=== PATIENT | male | born 1935 | race Caucasian/White ===

== ENCOUNTER → 2019-06-11 06:45 | Outpatient (CLI) | payer MEDICARE, SELFPAY ==
[2019-05-17 10:52] VITALS: BMI 31.5
--- NOTE | 2019-06-11 06:46 | ECHOCS_ITS ---
Reason For Study: CAD Procedure This was a 2D Doppler, Color Flow transthoracic echocardiogram. The study was technically difficult. Contrast injection was performed. Exam performed in department. Left Ventricle Normal LV size. Left ventricular systolic function is normal. The estimated ejection fraction is 65 %. No evidence for diastolic dysfunction. No regional wall motion abnormalities noted. Right Ventricle Normal RV size. ICD or pacer leads identified within the right ventricle. Normal systolic function. Atria Borderline to mildly enlarged left atrium. Normal right atrium. ICD or pacer leads identified within the right atrium. No doppler evidence for ASD. Mitral Valve There is mild to moderate mitral annular calcification. Extension of the mitral annular calcification onto the base of the posterior mitral valve leaflet. Mild diffuse mitral valve thickening. Mild (1+) mitral valve insufficiency. Tricuspid Valve Normal tricuspid valve. Mild tricuspid valve insufficiency. Right ventricular systolic pressure estimated to be 53 mmHg. Aortic Valve Trisinus/trileaflet aortic valve. Mild diffuse aortic valve thickening. Mild diffuse aortic valve calcification. Mild aortic stenosis. Pulmonic Valve The pulmonic valve is not well visualized. Trivial pulmonic valve insufficiency. Great Vessels Normal sized aortic root. Pericardium/Pleural No pericardial effusion. Medication Diluted definity 3.0ml given slow IV push to enhance endocardial definition. MMode/2D Measurements & Calculations LVIDd: 4.8 cm IVSd: 0.98 cm LVOT diam: 2.0 cm LVIDs: 2.8 cm LVPWd: 1.0 cm RVDd: 3.3 cm FS: 42.0 % LVOT area: 3.1 cm2 Ao root diam: 3.4 cm LAV(MOD-bp): 43.8 ml LVAd ap4: 34.0 cm2 LAV(MOD-bp) Indexed: 20.6 ml/m2 EDV(MOD-sp4): 111.1 ml LAV(MOD-sp2): 35.2 ml EDV(sp4-el): 113.1 ml LAV(MOD-sp4): 42.8 ml LVAs ap4: 17.1 cm2 ESV(MOD-sp4): 34.3 ml ESV(sp4-el): 33.7 ml EF(MOD-sp4): 69.1 % EF(sp4-el): 70.2 % SV(MOD-sp4): 76.8 ml SV(sp4-el): 79.4 ml Aortic Valve Planimetry: 1.7 cm2 LA A4 area: 17.6 cm2 LA dimension(2D): 4.7 cm RA A4 area: 13.9 cm2 Time Measurements MV dec time: 0.23 sec Doppler Measurements & Calculations MV E max kenn: 85.5 cm/sec Lat Peak E' Kenn: 9.7 cm/sec Med Peak E' Kenn: 7.5 cm/sec MV A max kenn: 102.5 cm/sec E/E' lat: 8.8 E/E' med: 11.4 MV E/A: 0.83 Ao V2 max: 205.2 cm/sec LV V1 max: 104.6 cm/sec SV(LVOT): 69.3 ml Ao max P.8 mmHg LV V1 max P.4 mmHg Ao V2 mean: 144.3 cm/sec LV V1 mean P.5 mmHg Ao mean P.2 mmHg LV V1 mean: 76.1 cm/sec Ao V2 VTI: 42.7 cm LV V1 VTI: 22.7 cm ANGEL(I,D): 1.6 cm2 ANGEL(V,D): 1.6 cm2 PA V2 max: 117.9 cm/sec TR max kenn: 350.5 cm/sec TR max P.6 mmHg Interpretation Summary The study was technically difficult. Contrast injection was performed. Left ventricular systolic function is normal. The estimated ejection fraction is 65 %. Borderline to mildly enlarged left atrium. There is mild to moderate mitral annular calcification. Extension of the mitral annular calcification onto the base of the posterior mitral valve leaflet. Mild diffuse mitral valve thickening. Mild (1+) mitral valve insufficiency. Mild tricuspid valve insufficiency. Mild aortic stenosis. Trivial pulmonic valve insufficiency. Right ventricular systolic pressure estimated to be 53 mmHg. No evidence for diastolic dysfunction. ICD or pacer leads identified within the right atrium ICD or pacer leads identified within the right ventricle. Ordering Physician: Troy Rodriguez Referring Physician: ANALY MILLER Performed By: Jyoti Matthew, LIZETTE, RVT
--- NOTE | 2019-06-11 12:26 | STRESSREP ---
Stress Test Report Date: 06-11-2019 Procedure: Pharmacologic stress nuclear imaging study Indications: CAD; PCI; permanent pacemaker Consent: Per the patient Procedure: The patient underwent pharmacologic (Regadenoson) evaluation with a peak heart rate of 97 beats per minute (70 %predicted maximal heart rate) and a peak blood pressure of 148/70 mmHg. The baseline ECG demonstrated normal sinus rhythm; poor R wave progression. The peak pharmacologic ECG demonstrated no obvious ECG changes. There was a rare PVC during recovery. There was no complaint of chest discomfort during pharmacologic infusion or recovery. The examination was discontinued secondary to completion of protocol. Impression: 1. Pharmacologic (Regadenoson) evaluation 2. Peak pharmacologic ECG with no obvious ECG changes. 3. There was a rare PVC during recovery. 4. Nuclear images pending Myocardial perfusion imaging study: Technique: The patient was injected with 14.5 millicuries of technetium 99m Cardiolite and subsequently rest SPECT Cardiolite nuclear imaging was obtained in the horizontal long, vertical long, and short axis views. The patient underwent pharmacologic (Regadenoson) evaluation with a peak heart rate of 97 beats per minute (70 % percent predicted maximal heart rate) and a peak blood pressure of 148/70 mmHg. The patient was injected with 45.0 millicuries of technetium 99m Cardiolite and subsequently stress SPECT Cardiolite nuclear imaging was obtained in the horizontal long, vertical long, and short axis views. A gated Cardiolite study at peak stress was obtained. Interpretation: Rest and stress SPECT Cardiolite nuclear imaging status post realignment, normalization, and attenuation correction demonstrate relative uniform tracer uptake and myocardial perfusion appearing within normal limits. There is end systolic thickening and brightening. The gated Cardiolite study demonstrates myocardial thickening and inward wall motion. The reported LVEF is 79 %. Impression: 1. Rest and stress SPECT Cardiolite nuclear imaging demonstrate relative uniform tracer uptake and myocardial perfusion appearing within normal limits. 2. The gated Cardiolite study reports an LVEF of 79 %. This note was generated with [employer] software. It may contain incorrect words, spelling, and punctuation that were not noted in checking the note before signing.
== END ==
PROVIDERS: Referring Provider Internal Medicine Cardiovascular Disease; Visit Provider Internal Medicine Cardiovascular Disease
DX: I25.10 Atherosclerotic heart disease of native coronary artery without angina pectoris (principal)
CPT/HCPCS: 78452; 93017; 93306; A9500; Q9957; A4216; C8929; J2785

== ENCOUNTER 2020-04-11 09:08 | Day surgery (SDC) | payer MEDICARE, SELFPAY ==
[2020-04-06 15:06] VITALS: BMI 33.3
--- NOTE | 2020-04-06 15:58 | RAD_ITS ---
HISTORY: DYSPNEA AND CHEST PRESSURE ON EXERTION ADDITIONAL HISTORY: None provided. COMPARISON: 06/07/2017 EXAMINATION/TECHNIQUE: XR Chest 2 Views Number of images including paperwork: 2 FINDINGS: LUNGS AND PLEURA: Hyperinflation. Mild linear basilar opacities appear similar, likely scarring. No consolidation, mass or pleural effusion. CARDIAC SILHOUETTE: Unremarkable. MEDIASTINUM AND ZOYA: Aortic calcification. UPPER ABDOMEN: Unremarkable. SKELETON AND SOFT TISSUES: No acute findings. Degenerative changes. OTHER DEVICES AND HARDWARE: Pacemaker with left-sided generator. RAD/Chest PA and Lateral IMPRESSION: No acute cardiopulmonary abnormality. Hyperinflation compatible with COPD. at [id number] Reported and signed by: Angelina Blake MD Electronically Signed: Angelina Blake MD at 7:57 EST Tel , Service support ,
[2020-04-06 17:21] LABS: Absolute Lymphocyte Count 1.48 X10^3/uL (0.83-4.51); Absolute Neutrophil Count 4.7 X10^3/uL (2.0-7.7); Basophil# 0.05 X10^3/uL; Basophil% 0.7 % (0-1); Eosinophil# 0.22 X10^3/uL; Eosinophils% 3.1 % (0-5); Hematocrit 48.1 % (40-54); Hemoglobin 14.8 g/dL (13.0-16.5); Lymphocyte # 1.48 X10^3/ul (4.0); Mean Corp Hgb Conc 30.8 g/dL (32-36); Mean Corpuscular Hgb 29.2 pg (27.0-32.0); Mean Corpuscular Volume 94.9 fL (80-94); Mean Platelet Vol. 10.4 fl (6.2-12.0); Monocyte% 8.5 % (0-10); NRBC Flagged by Analyzer 0 % (0-5); Neutrophil # 4.66 X10^3/uL (2.7-7.7); Neutrophil % 66.3 % (47-70); Platelet Count 258 K/mm3 (150-450); RBC Distribution Width CV 12.8 % (11.6-14.6); RBC Distribution Width SD 44.3 fl (35.1-43.9); Red Blood Count 5.07 M/mm3 (4.6-6.2)
[2020-04-06 17:30] LABS: International Normalized Ratio 1.1; Prothrombin Time (Protime)PT. 13.8 SECONDS (11.7-14.9)
[2020-04-06 17:34] LABS: Anion Gap 6 (5-15); BNP,B-Type NATRIURETIC PEPTIDE 153.3 pg/mL (0-100); BUN 22 mg/dL (7-18); BUN/Creat Ratio 25.1 RATIO (10-20); Calcium,Total 9.3 mg/dL (8.5-10.1); Chloride 106 mmol/L (98-107); Creatinine, Serum 0.88 mg/dL (0.70-1.30); EST Glomerular Filtration Rate 88 mL/min (>60); Est Glom Filt Rate - Afr Amer 107 mL/min (>60); Glucose 129 mg/dL (74-106); Potassium 4.1 mmol/L (3.5-5.1); Sodium Level 139 mmol/L (136-145)
[2020-04-10 11:32] VITALS: BMI 33.3
--- NOTE | 2020-04-11 07:37 | HP_ITS ---
HPI HPI History of Present Illness Surgical H&P: Yes Details: ECTOR ZELAYA, is a 85 M who presents to the office today for for concerns over stable angina from his primary care doctor. Patient has history of coronary artery disease status post bare-metal stenting to RCA in June 2006, cardiac dysrhythmia with permanent pacemaker placement and subsequent generator change in June 2015, hypertension, and hyperlipidemia. pt sts that over the last few months he has had a decrease in exercise tolerance when he walks. He notes that with significant exertion, such as walking across a baseball field, he did have some chest discomfort that he rates as a 3/10. He was able to recover without issues. He, however, was able to walk from the car to the office without problems. He feels that this is similar to what he had prior to his PPM placement. He does not have any palpitations that he is aware of. He does not have any lightheadedness/dizziness. He does not have any edema. Intake Vital Signs 04/06/20 Height 5 ft 8 in 04/06/20 Weight: 219 lb 04/06/20 BMI 33.3 04/06/20 BP 156/75 H 04/06/20 Blood Pressure Location Rt brachial 04/06/20 Position Sitting 04/06/20 Respiration 22 H 04/06/20 Pulse 66 04/06/20 Pulse Source Monitor 04/06/20 Pulse Oximetry (%) 90 Intake Visit Reasons: CP Gang Leader Required: No Is patient in pain?: No Allergies beta blockers Adverse Reaction (Uncoded 11/15/19 10:18) confusion Medications Aspirin [Aspirin, Baby] 81 mg PO DAILY@0800 06/23/15 [History Confirmed 11/15/19] Cholecalciferol (VIT D3) [Vitamin D] 2,000 unit PO DAILY 06/23/15 [History Confirmed 04/06/20] Timolol 0.5% [Timoptic] 1 drp EACH EYE DAILY 06/23/15 [History Confirmed 04/06/20] glipizide 5 mg-metformin 500 mg tablet 2 tab PO BID tab 05/30/17 [History Confirmed 04/06/20] balsalazide 750 mg capsule 4,500 mg PO QDAY cap 05/25/18 [History Confirmed 04/06/20] clopidogrel 75 mg tablet 75 mg PO DAILY #90 tab 03/24/19 [Rx Confirmed 04/06/20] liraglutide 0.6 mg/0.1 mL (18 mg/3 mL) subcutaneous pen injector 1.2 mg SC DAILY ml 05/17/19 [History Confirmed 04/06/20] atorvastatin 20 mg tablet 20 mg PO .COMPLEX #36 tab 07/21/19 [Rx Confirmed 04/06/20] atenolol 50 mg tablet 50 mg PO DAILY #90 tab 10/27/19 [Rx Confirmed 04/06/20] enalapril maleate 10 mg tablet 10 mg PO DAILY #90 tab 10/27/19 [Rx Confirmed 04/06/20] nitroglycerin 0.4 mg sublingual tablet 0.4 mg SUBLINGUAL Q5-15M PRN #25 tab 03/28/20 [Rx Confirmed 04/06/20] dapagliflozin 10 mg tablet 10 mg PO DAILY 04/06/20 [History Confirmed 04/06/20] [facility] Medical History Type 2 diabetes mellitus (Chronic) Mixed hyperlipidemia (Chronic) Essential hypertension (Chronic) Atherosclerotic heart disease of [place] coronary artery without angina pectoris (Chronic) Atrioventricular dissociation (Chronic) Paroxysmal supraventricular tachycardia (Chronic) Bradycardia, sinus (Chronic) Cardiac pacemaker in situ (Chronic) History of percutaneous transluminal coronary angioplasty (Chronic) Diabetes mellitus (Inactive) HLD (hyperlipidemia) (Inactive) HTN (hypertension) (Inactive) Surgical History Postsurgical percutaneous transluminal coronary angioplasty (PTCA) status (Chronic ~06/2006) pacemaker implant (Chronic ~2006) Family History Father CAD (coronary artery disease) Myocardial infarction, Onset Age: 75 Mother Cancer Sister Hypertension Social History (Updated 04/07/20 @ 15:38 by Violeta MATT, PA) Smoking Status: Former smoker how long ago did patient quit smokin alcohol intake: never diet: low salt caffeine: Yes ROS Const Const: Negative for fatigue, weakness, fever(s) or headache(s) Eyes Eyes: Negative for blind spots, loss of peripheral vision or transient loss of vision ENT ENT: Negative for headache(s), dizziness, tinnitus or Nosebleed/epistaxis Cardio Chest Pain: Yes Palpitations: No Edema: None Muscle aches with walking: None Resp Respiratory: Positive for SOB with activity; negative for SOB at rest, SOB orthopnea\SOB lying down or Cough GI GI: Negative nausea, vomiting, heartburn or vomiting blood/hematemesis : Negative for hematuria Musc Musc: Negative for muscle aches/ myalgia Neuro Neuro: Negative for dizziness, lightheadedness, near syncope, syncope, orthostatic symptoms, headache(s) or weakness Victor Manuel Hematologic/Lymphatic: Negative for easy bleeding Endo Endo: Negative for fatigue Cardiology Exam Const Appearance: cooperative, healthy appearing, comfortable and no acute distress Orientation: alert, awake and oriented x3 Head Head: normal to inspection Mouth: oral mucosae normal Neck Neck: normal visual inspection and no JVD Carotids: normal carotid upstroke Chest Chest inspection: normal inspection of the chest and normal respiratory effort Auscultation: Bilateral: Clear to Auscultation Cardio Rate: regular rate Rhythm: regular rhythm Heart sounds: S1 normal and S2 normal GI GI: normal to inspection Neuro General: alert, awake, oriented x3 and CN's II-XI intact bilaterally Skin Skin: no rashes or lesions noted Extremities Pulses: Normal: Right Posterior Tibial Pulse, Left Posterior Tibial Pulse, Right Radial Pulse, Left Radial Pulse Lower Extremity Edema: None: Bilateral Psych Psychological: normal affect Assessment & Plan 1. 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 With his recent stress test being negative and his continued chest discomfort with exertion that is worsened would like to evaluate for underlying ischemia. He is agreeable to proceed with a diagnostic heart catheterization. Patient Instructions Nothing to eat or drink after midnight Your cath is scheduled for 1030 am on 04/11 with an arrival time of 0900 In the morning take your ASA, atenolol, plavix, enalapril you need a transport truck driver if you have a stent placed you will spend night Orders Orders: 12 Lead EKG performed by [facility] 04/06/20 Prothrombin Time w/INR 04/06/20 2. Essential hypertension I10 Plan Blood pressure is well controlled on current medications, we do not recommend any changes at this time. 3. Mixed hyperlipidemia E78.2 Plan Managed by his primary care doctor. He will continue with his current dose of statin therapy. 4. Cardiac pacemaker in situ Z95.0 Plan Pacemaker is functioning appropriately. We will continue to monitor at routine scheduled pacemaker interrogations. 5. MARTIN (dyspnea on exertion) R06.00 Plan With shortness of breath with exertion and chest discomfort will obtain labs, chest x-ray and will also proceed with his diagnostic heart catheterization. Orders Orders: Basic Metabolic Profile (BMP) 04/06/20 CBC W/Diff, Automated 04/06/20 Chest PA and Lateral 04/06/20 BNP,B-Type NATRIURETIC PEPTIDE 04/06/20 6. Antiplatelet or antithrombotic long-term use Z79.02 Plan Detail Follow Up 04/06/20 (keep as is) Coding Level of Care Code Off vis,est,level 4 Diagnoses Coronary artery disease with angina pectoris I25.119 Essential hypertension I10 Mixed hyperlipidemia E78.2 Cardiac pacemaker in situ Z95.0 MARTIN (dyspnea on exertion) R06.00 Antiplatelet or antithrombotic long-term use Z79.02 Coding Level of Care Code Off vis,est,level 4 Diagnoses Coronary artery disease with angina pectoris I25.119 Essential hypertension I10 Mixed hyperlipidemia E78.2 Cardiac pacemaker in situ Z95.0 MARTIN (dyspnea on exertion) R06.00 Antiplatelet or antithrombotic long-term use Z79.02 Supplemental Info Supplemental Information Echocardiogram in 2020 demonstrated: Left ventricular systolic function is normal. The estimated ejection fraction is 65 %. Borderline to mildly enlarged left atrium. There is mild to moderate mitral annular calcification. Extension of the mitral annular calcification onto the base of the posterior mitral valve leaflet. Mild diffuse mitral valve thickening. Mild (1+) mitral valve insufficiency. Mild tricuspid valve insufficiency. Mild aortic stenosis. Trivial pulmonic valve insufficiency. Right ventricular systolic pressure estimated to be 53 mmHg. No evidence for diastolic dysfunction. ICD or pacer leads identified within the right atrium ICD or pacer leads identified within the right ventricle. Stress Test Report Date: 06-11-2019 Procedure: Pharmacologic stress nuclear imaging study Indications: CAD; PCI; permanent pacemaker Consent: Per the patient Procedure: The patient underwent pharmacologic (Regadenoson) evaluation with a peak heart rate of 97 beats per minute (70 %predicted maximal heart rate) and a peak blood pressure of 148/70 mmHg. The baseline ECG demonstrated normal sinus rhythm; poor R wave progression. The peak pharmacologic ECG demonstrated no obvious ECG changes. There was a rare PVC during recovery. There was no complaint of chest discomfort during pharmacologic infusion or recovery. The examination was discontinued secondary to completion of protocol. Impression: 1. Pharmacologic (Regadenoson) evaluation 2. Peak pharmacologic ECG with no obvious ECG changes. 3. There was a rare PVC during recovery. 4. Nuclear images pending Myocardial perfusion imaging study: Technique: The patient was injected with 14.5 millicuries of technetium 99m Cardiolite and subsequently rest SPECT Cardiolite nuclear imaging was obtained in the horizontal long, vertical long, and short axis views. The patient underwent pharmacologic (Regadenoson) evaluation with a peak heart rate of 97 beats per minute (70 % percent predicted maximal heart rate) and a peak blood pressure of 148/70 mmHg. The patient was injected with 45.0 millicuries of technetium 99m Cardiolite and subsequently stress SPECT Cardiolite nuclear imaging was obtained in the horizontal long, vertical long, and short axis views. A gated Cardiolite study at peak stress was obtained. Interpretation: Rest and stress SPECT Cardiolite nuclear imaging status post realignment, normalization, and attenuation correction demonstrate relative uniform tracer uptake and myocardial perfusion appearing within normal limits. There is end systolic thickening and brightening. The gated Cardiolite study demonstrates myocardial thickening and inward wall motion. The reported LVEF is 79 %. Impression: 1. Rest and stress SPECT Cardiolite nuclear imaging demonstrate relative uniform tracer uptake and myocardial perfusion appearing within normal limits. 2. The gated Cardiolite study reports an LVEF of 79 %. Diagnostics Electrocardiogram 04/06/20 Echocardiogram 06/11/19 Stress Test Nuclear Medicine 06/11/19 Stress Test 06/11/19 Pacemaker Check 02/16/20 Chest X-Ray 04/06/20 COVID (Procedure Consent) Procedure Criteria Procedure Criteria: Yes Elective The surgeon/proceduralist and patient have discussed in detail the risk of exposure to and/or potential harm posed by the COVID-19 virus with having a surgery/procedure at this time versus the risk of? delaying the surgery/procedure. It is not possible to know either the risk of delaying the surgery or procedure or chance of getting an infection with perfect accuracy, but a joint decision was made between the patient and the surgeon/proceduralist ?to proceed at this time with the scheduled surgery/procedure as indicated on the consent form. I have re-examined the patient. There are no clinical changes since date of exam.
--- NOTE | 2020-04-11 11:09 | CASEMGMT ---
Addendum entered by Lia De Luna 04/11/20 11:17: Call from seed laboratory assistant regarding transfer of outpt cath and if [facility] is in-network. Dr. Rodriguez updated that [facility] is in-network per website and rest of tertiary list completed, voice understanding. Mariama DODD CM Original Note: According to the [facility] website, the following are in-network tertiary facilities: [facility], [place], [facility], [place], [facility], [facility], [facility], [place], [facility], and . Mariama DODD CM
--- NOTE | 2020-04-11 11:44 | CL.D_ITS ---
Patient Name: ECTOR ZELAYA Study Date: 04/11/2020 Performing: Troy Rodriguez MD Ht: 68.11 inches 173 cm : 1935 Wt: 218.26 lbs 99 kg Age: 85 Gender: male BSA: 2.12 PROCEDURE(S) PERFORMED [id number]/LV CLINICAL PROFILE AND INDICATIONS Indications: Worsening Angina, Suspected CAD Heart Failure: None Stress/Imaging Date: 06/11/2019 Angina Classification Anginal Classification w/in 2 Weeks: CCS III CAD Presentations: Stable angina. CONCLUSIONS [place] Multivessel CAD RECOMMENDATIONS Risk factor modification Medical therapy Surgery consult for coronary revascularization DESCRIPTION OF PROCEDURE The patient arrived to the procedure lab. The risks and benefits of the procedure as well as a full d escription of our services here and current unavailability of surgical backup were fully explained to the patient and/or their significant other prior to the catheterization. The Timeout was completed, verifying the correct patient and procedure. The patient's procedural site was prepped and draped in the usual fashion. Local anesthetic was given subcutaneously to right radial region with Lidocaine 2% . Using a modified Seldinger technique, arterial access was obtained via the right radial artery, a 6 Fr sheath was inserted. Left Coronary Artery selective angiography was performed in multiple views u sing a 5 Fr. 4.0 [place] catheter. Left Coronary Artery selective angiography was performed in multiple views using a 5 Fr. JL3.5 catheter. Right Coronary Artery selective angiography was then performed i n multiple views using a 5 Fr. JR 4 catheter.The arterial sheath was pulled and a TR Band was applied for hemostasis CORONARY ANGIOGRAPHY DOMINANCE: Right Dominant LEFT HEART ASSESSMENT Left Ventricular Ejection Fraction: Not assessed LEFT MAIN: Mild calcification LEFT ANTERIOR DESCENDING ARTERY: PROX LAD: Moderate calcification, 50 - 75 % Stenosis MID LAD: Hazy: 75 % Stenosis, Mild luminal irregularities SEPTAL: Ostial: 50 % Stenosis CIRCUMFLEX ARTERY: PROX CIRC: Mild calcification, Mild luminal irregularities MID CIRC: 50 - 75 % Stenosis DISTAL CIRC: 75 % Stenosis OM 1: Proximal - 25 % Stenosis, Mid - Mild luminal irregularities RIGHT CORONARY ARTERY: Mild luminal irregularities PROX RCA: Mild calcification MID RCA: Previously placed stent is occluded, Mid to distal: filling from bridging collaterals: fills late with mid to distal 50 - 75 % Stenosis COLLATERAL FLOW: Collateral flow from Left to Right COMPLICATIONS No Complications PROCEDURE MEDICATIONS Fentanyl 50 mcg IV Versed 1 mg IV Oxygen: 2 L/min via nasal cannula Baby Aspirin (81mg) 1 Tabs PO @ 04/11/2020 09:32:51 Heparin diluted in 23cc Heparinized saline. Patient given 10cc IA of this solution. 04/11/2020 10:26 :59 Plavix 75 mg PO 04/11/2020 09:33:07 Verapamil 2.5mg, Ntg 100mcgs, 2000 units of Heparin diluted in 23cc Heparinized saline. Patient give n 10cc IA of this solution. 04/11/2020 10:26:59 SUMMARY OF HEMODYNAMIC DATA Time AIR REST ECG 09:31:04 AO 109/63 (83) SA 10:33:12 AO 125/65 (94) 10:41:35 Signed By Troy Rodriguez MD On 04/11/2020 11:43:45 Troy Rodriguez MD
--- NOTE | 2020-04-11 13:04 | PN.CARD_ITS ---
Subjectve: Patient is now status post diagnostic cardiac catheterization. He appears to be resting comfortably. Objective: Weight: 219 lb Body Mass Index (BMI) 33.3 General: Awake, Alert, Oriented x 3, Cooperative, No Acute Distress, Obese HEENT: Atraumatic, Normocephalic, PERRL, EOMI, Sclera Non Icteric Neck: Supple, Good ROM, No JVD Lungs: Clear to auscultation Cardiovascular: Regular Rhythm, Normal S1, Normal S2 Vascular: Normal Radial Pulses Abdomen: Bowel Sounds Present, Soft Extremities: No edema Neurological: No Focal Motor or Sensory Deficit Psych/Mental Status: Appropriate Rhythm: Sinus rhythm Cardiac Cath: CONCLUSIONS [place] Multivessel CAD RECOMMENDATIONS Risk factor modification Medical therapy Surgery consult for coronary revascularization DESCRIPTION OF PROCEDURE The patient arrived to the procedure lab. The risks and benefits of the procedure as well as a full description of our services here and current unavailability of surgical backup were fully explained to the patient and/or their significant other prior to the catheterization. The Timeout was completed, verifying the correct patient and procedure. The patient's procedural site was prepped and draped in the usual fashion. Local anesthetic was given subcutaneously to right radial region with Lidocaine 2%. Using a modified Seldinger technique, arterial access was obtained via the right radial artery, a 6Fr sheath was inserted. Left Coronary Artery selective angiography was performed in multiple views using a 5 Fr. 4.0 [place] catheter. Left Coronary Artery selective angiography was performed in multiple views using a 5 Fr. JL3.5 catheter. Right Coronary Artery selective angiography was then performed in multiple views using a 5 Fr. JR 4 catheter.The arterial sheath was pulled and a TR Band was applied for hemostasis CORONARY ANGIOGRAPHY DOMINANCE: Right Dominant LEFT HEART ASSESSMENT Left Ventricular Ejection Fraction: Not assessed LEFT MAIN: Mild calcification LEFT ANTERIOR DESCENDING ARTERY: PROX LAD: Moderate calcification, 50 - 75 % Stenosis MID LAD: Hazy: 75 % Stenosis, Mild luminal irregularities SEPTAL: Ostial: 50 % Stenosis CIRCUMFLEX ARTERY: PROX CIRC: Mild calcification, Mild luminal irregularities MID CIRC: 50 - 75 % Stenosis DISTAL CIRC: 75 % Stenosis OM 1: Proximal - 25 % Stenosis, Mid - Mild luminal irregularities RIGHT CORONARY ARTERY: Mild luminal irregularities PROX RCA: Mild calcification MID RCA: Previously placed stent is occluded, Mid to distal: filling from bridging collaterals: fills late with mid to distal 50 - 75 % Stenosis COLLATERAL FLOW: Collateral flow from Left to Right Medical Necessity - Tobacco Use Smoking Status: Former smoker Assessment/Plan 1. CAD status post PCI-remote The patient has undergone reevaluation with diagnostic cardiac catheterization. He was found to have progressive underlying CAD. His case was reviewed with interventional cardiology. The recommendation at this time was to consider the patient for CT surgery/CABG. If CT surgery declined the patient that he would need to be considered for a chronic total occlusion interventional cardiology consult for his RCA distribution. His case was discussed with Dr. Boubacar [facility] CT surgery. He agreed to except the patient in transfer for further evaluation and care when a bed was available. 2. Bradycardia/tachycardia The patient has had a history of both bradycardias as well as tachycardia/SVT. He has been treated medically. He has a permanent pacemaker in place. 3. Permanent pacemaker He appears to be doing well with his permanent pacemaker thus far. He can be reevaluated as deemed appropriate. 4. Hyperlipidemia He will continue lipid-lowering therapy. 5. Hypertension His blood pressure will be followed. He will continue medical therapy as deemed appropriate. 6. Diabetes mellitus He will continue evaluation care as deemed appropriate. Comment: The patient's case has been discussed and reviewed with the patient. This note was generated using a voice recognition system and there may be incorrect words, spelling or punctuation that were not noted when reviewing the office note prior to saving.
[2020-04-11 15:20] VITALS: BP 148/69; PULSE 60; RESP 16; TEMP 36.2; O2SAT 97
[2020-04-11 15:30] VITALS: PULSE 60
[2020-04-11] MEDS: 0.9% Normal Saline 1,000 ML 75 ML IV (15:59)
[2020-04-11 17:12] LABS: Partial Thromboplast Time 50.2 Seconds (24.1-36.2)
--- NOTE | 2020-04-11 17:22 | NURSING ---
Inquired at [facility] regarding bed status. No beds available at this time.
[2020-04-11] MEDS: HEPARIN/D5w 25,000 UNITS 25,000 UNITS/250 ML IV.SOLN. 14 UNITS IV (18:13)
--- NOTE | 2020-04-11 20:03 | NURSING ---
Report called to [facility] RN
[2020-04-11 21:16] VITALS: PULSE 60
[2020-04-11 21:36] VITALS: BP 171/79; PULSE 60; RESP 18; TEMP 36.8; O2SAT 95
[2020-04-11] MEDS: Timolol 0.5% 5ML OPTH.BTL 1 DRP EACH EYE (21:41)
[2020-04-11] MEDS: BALSALAZIDE DISODIUM 750 MG CAPSULE 4500 MG PO (21:42)
[2020-04-11] MEDS: Lisinopril 10 MG Tablet PO (21:43)
[2020-04-11] MEDS: Atenolol 50 MG Tablet PO (21:43)
== END 2020-04-11 23:24 | disposition short-term general hospital (02) ==
LOC: CLSP 09:09 → PCU 23:30
PROVIDERS: Physician Assistant Medical; Referring Provider Internal Medicine Cardiovascular Disease; Visit Provider Internal Medicine Cardiovascular Disease
DX: I25.119 Atherosclerotic heart disease of native coronary artery with unspecified angina pectoris (principal); I10 Essential (primary) hypertension; E11.9 Type 2 diabetes mellitus without complications; R07.9 Chest pain, unspecified; R06.00 Dyspnea, unspecified; Z95.0 Presence of cardiac pacemaker; Z95.5 Presence of coronary angioplasty implant and graft; E78.5 Hyperlipidemia, unspecified; I47.1 Supraventricular tachycardia; R00.1 Bradycardia, unspecified; Z87.891 Personal history of nicotine dependence; Z79.84 Long term (current) use of oral hypoglycemic drugs; Z79.899 Other long term (current) drug therapy
CPT/HCPCS: 36415; 71046; 80048; 83880; 85025; 85610; 85730; 93454; 99152; 99153; J7030; J7040; C1769; C1894; Q9967

== ENCOUNTER 2020-04-27 18:15 | Inpatient (IN) | payer MEDICARE, SELFPAY ==
[2020-04-10 11:32] VITALS: BMI 33.3
[2020-04-27] VITALS (10 sets, daily range): BP systolic 67–102; BP diastolic 35–90; PULSE 80–84; RESP 20–24; TEMP 36.1–36.7; O2SAT 96–99; BMI 31.3
--- NOTE | 2020-04-27 18:35 | EKG12_ITS ---
Test Reason : DYSRHYTHMIA Blood Pressure : / mmHG Vent. Rate : 080 BPM Atrial Rate : 115 BPM P-R Int : 000 ms QRS Dur : 170 ms QT Int : 476 ms P-R-T Axes : 023 264 072 degrees QTc Int : 548 ms Sinus tachycardia with complete heart block and Ventricular-paced rhythm Abnormal ECG Confirmed by MANISH ARANDA, CORTNEY ([id number]), state editor ORA MEZA ([id number]) on 05/02/2020 9:02:00 AM Referred By: CORINNE Confirmed By:CORTENY HAMMOND MD
--- NOTE | 2020-04-27 18:38 | ED.DCSUM_ITS ---
History of Present Illness Chief Complaint: Hypotension Narrative: This patient is an 85-year-old male who presents with low blood pressure. He had a CABG about a week and a half ago done at [facility]. He came home on Friday of this week. For the past proximately 3 days he has had low blood pressure and high heart rate. He does complain of feeling mildly short of breath and also complains of a cough. He states nothing tastes good. He denies fevers congestion rhinorrhea sore throat. He denies nausea vomiting or diarrhea. He denies abdominal pain. He did have some dysuria after surgery although this seems to have improved. Triage note noted that there may have been an error with his blood pressure medication. After long discussion with the patient he actually did not take any extra blood pressure medication he did take his usual medications that have been prescribed. Past Medical History - Allergies and Home Meds Allergies/Adverse Reactions: Allergies beta blockers Adverse Reaction (Uncoded 04/27/20 18:15) confusion PARTICULAR ONES Primary Care Physician: Lucho Tucker MD [Primary Care Provider] - Past Medical History: - - Diabetes, hypertension, coronary artery disease Smoking Status: Former smoker Review of Systems All systems negative except as indicated General: Denies: Fever Eyes: Denies: Visual changes - bilaterally ENT: Denies: Bilateral ear pain Cardiovascular: Denies: Chest pain Respiratory: Reports: Dyspnea, Cough. Denies: Sputum Gastrointestinal: Denies: Abdominal pain, Nausea, Vomiting, Diarrhea Musculoskeletal: Denies: Myalgias, Arthralgias Skin: Denies: Rash Neurological: Denies: Headache Hematologic: Denies: Easy bruising Allergy: Denies: Uticaria Physical Exam Vital Signs/Narrative: Vital Signs Temp BP 04/27/20 18:16 97.0 F L 89/43 L Inital Vital Signs reviewed: Yes General: Well nourished, Obese Head: Normocephalic Eyes: EOMI ENT: Moist mucous membranes Neck: Supple Cardiovascular: Regular rate, Regular rhythm, - - Sternotomy incision clean dry and intact Respiratory: No distress, CTA bilaterally Abdomen: Soft, Nontender, Nondistended Skin: Normal color Neurological: Alert Diagnostic/Tx/Re-eval 04/27/20 19:25 Chest 1 View (Portable) [RAD] Stat 04/27/20 22:54 CXR for Line Placement [RAD] Stat 04/27/20 19:15 Mucosa - Nose SARS-CoV-2 Antigen (Rapid) - Final SARS-CoV-2 (COVID 19) Laboratory Results 04/27/20 04/27/20 04/27/20 18:45 18:45 18:45 WBC 4.7 RBC 3.37 L Hgb 9.7 L Hct 32.8 L MCV 97.3 H MCH 28.8 MCHC 29.6 L RDW Std Deviation 49.9 H RDW Coeff of Per 14.1 Plt Count 240 MPV 10.9 Immature Gran % (Auto) 1.500 H Neut % (Auto) 69.9 Lymph % (Auto) 18.9 L Bowie % (Auto) 9.1 Eos % (Auto) 0.2 Baso % (Auto) 0.4 Absolute Neuts (auto) 3.3 Absolute Lymphs (auto) 0.89 Nucleated RBC % 0.8 PT Cancelled INR Cancelled APTT Cancelled Sodium Cancelled Potassium Cancelled Chloride Cancelled Carbon Dioxide Cancelled Anion Gap Cancelled BUN Cancelled Creatinine Cancelled Estim Creat Clear Calc Cancelled Est GFR (MDRD) Af Amer Cancelled Est GFR (MDRD) Non-Af Cancelled BUN/Creatinine Ratio Cancelled Glucose Cancelled Lactic Acid Calcium Cancelled Total Bilirubin Cancelled AST Cancelled ALT Cancelled Alkaline Phosphatase Cancelled Troponin I Cancelled Total Protein Cancelled Albumin Cancelled Globulin Cancelled Albumin/Globulin Ratio Cancelled 04/27/20 04/27/20 04/27/20 18:45 20:25 20:25 WBC RBC Hgb Hct MCV MCH MCHC RDW Std Deviation RDW Coeff of Per Plt Count MPV Immature Gran % (Auto) Neut % (Auto) Lymph % (Auto) Bowie % (Auto) Eos % (Auto) Baso % (Auto) Absolute Neuts (auto) Absolute Lymphs (auto) Nucleated RBC % PT 15.4 H INR 1.3 APTT 42.9 H Sodium 141 Potassium 4.3 Chloride 107 Carbon Dioxide 23.0 Anion Gap 11 BUN 36 H Creatinine 2.67 H Estim Creat Clear Calc 20.28 Est GFR (MDRD) Af Amer 30 L Est GFR (MDRD) Non-Af 24 L BUN/Creatinine Ratio 13.5 Glucose 119 H Lactic Acid 4.6 H* Calcium 7.4 L Total Bilirubin 0.30 AST 138 H ALT 36 Alkaline Phosphatase 95 Troponin I 0.697 H* Total Protein 5.8 L Albumin 2.5 L Globulin 3.3 Albumin/Globulin Ratio 0.8 L - Medical Decision Making EKG shows a ventricularly paced rhythm at a rate of 80. Patient was treated with IV fluids. His blood pressure did transiently improved to 102 systolic. Labs are notable for hemoglobin 9.7. Patient does have an acute kidney injury with a creatinine of 2.67 which was previously normal at 0.88. Lactic acid is 4.6. Troponin is 0.697. This is likely just related to recent cardiac surgery. Patient's acute kidney injury and lactic acidosis could be related to hypovolemia. Patient states he has had no appetite and is eating and drinking less. However patient is still hypotensive after 3 L of IV fluid. I did perform a bedside [id number] transthoracic ultrasound the heart. I see no obvious sniffing and pericardial effusion. An oddly this is cardiac tamponade. Given his hypotension with recent CABG I attempted to transfer the patient back to [facility]. They have no critical care beds. They are unable to take the patient. I did speak to the patient's cardiothoracic surgeon, Dr. Cintron he recommended starting Glen-Synephrine and continuing IV fluid resuscitation. Given that that [facility] is a [facility] facility also spoke to the [facility] transfer line. I spoke to the cardiovascular ICU fellow who did not feel the patient was appropriate for the cardiovascular surgical ICU and recommended that I talk to the medical ICU physician. The medical ICU physician was unable to do except patient he states that [facility] is at capacity for ICU beds. Therefore I am unable to arrange for transfer and we will need to keep the patient here until bed becomes available. I did speak to Dr. oRbbins, cardiology on-call. He vocalized concerns including for thrombosed graft although the patient has no chest pain his troponin is in the range that I expect could just be related to his prior surgery. EKG is limited as he is ventricularly paced. He agrees with plan for ICU admission and will see the patient in consultation and get her echocardiogram tomorrow. The hospitalist who agrees to admit. Patiently the patient's Covid testing did return positive. Patient had borderline oxygen saturations while here of 90 to 92%. We did give IV Decadron. Patient admitted to the ICU. - Critical Care Time Critical care time (excluding procedures): 30-74 minutes, Discussing w/Consultants, Arranging Admission or Transfer, Performing Direct Patient Care at Bedside ED Disposition - Plan for ED Patient: Disposition: Acute Care [facility] Diagnosis: COVID-19, Hx of CABG, BRIAN (acute kidney injury), Shock Referrals: Lucho Tucker MD [Primary Care Provider] -
[2020-04-27] MEDS: 0.9% Normal Saline 1,000 ML 999 ML IV ×3 (18:45→21:17)
[2020-04-27 19:06] LABS: Absolute Lymphocyte Count 0.89 X10^3/uL (0.83-4.51); Absolute Neutrophil Count 3.3 X10^3/uL (2.0-7.7); Basophil# 0.02 X10^3/uL; Basophil% 0.4 % (0-1); Eosinophil# 0.01 X10^3/uL; Eosinophils% 0.2 % (0-5); Hematocrit 32.8 % (40-54); Hemoglobin 9.7 g/dL (13.0-16.5); Lymphocyte # 0.89 X10^3/ul (4.0); Lymphocyte % 18.9 % (19-41); Mean Corp Hgb Conc 29.6 g/dL (32-36); Mean Corpuscular Hgb 28.8 pg (27.0-32.0); Mean Corpuscular Volume 97.3 fL (80-94); Mean Platelet Vol. 10.9 fl (6.2-12.0); Monocyte# 0.43 X10^3/uL; Monocyte% 9.1 % (0-10); NRBC Flagged by Analyzer 0.8 % (0-5); Neutrophil # 3.29 X10^3/uL (2.7-7.7); Neutrophil % 69.9 % (47-70); Platelet Count 240 K/mm3 (150-450); RBC Distribution Width CV 14.1 % (11.6-14.6); RBC Distribution Width SD 49.9 fl (35.1-43.9); Red Blood Count 3.37 M/mm3 (4.6-6.2); White Blood Count 4.7 K/mm3 (4.4-11.0)
--- NOTE | 2020-04-27 19:25 | RAD_ITS ---
STUDY: X-RAY CHEST REASON FOR EXAM: Male, 85 years old. HYPOTENSION, WEAKNESS -- PT HAD OPEN HEART SURGERY LAST WEEK TECHNIQUE: Frontal view COMPARISON: 04/06/2020 FINDINGS: Sternotomy wires and left-sided pacemaker are noted. The lungs are expanded. Mild left basilar atelectasis. Cardiomegaly. Normal mediastinum and jovan. Normal visualized pulmonary arteries. Normal visualized aortic arch and descending thoracic aorta. Degenerative changes of the thoracic spine. Normal visualized ribs, clavicles, and shoulders. There is no demonstrated abnormality of the visualized soft tissue structures of the upper abdomen. RAD/Chest 1 View (Portable) IMPRESSION: Mild left basilar atelectasis. Electronically Signed: Varghese Youssef DO at 19:54 EST Tel [phone], Service support ,
[2020-04-27 19:35] LABS: Lactic Acid 4.6 mmol/L (0.4-1.9)
[2020-04-27 20:52] LABS: International Normalized Ratio 1.3; Prothrombin Time (Protime)PT. 15.4 SECONDS (11.7-14.9)
[2020-04-27 20:53] LABS: Partial Thromboplast Time 42.9 Seconds (24.1-36.2)
[2020-04-27 21:14] LABS: ALB/GLOB Ratio 0.8 RATIO (0.9-2.4); AST(SGOT) 138 U/L (15-37); Alanine Aminotransfer ALT/SGPT 36 U/L (16-61); Albumin, Serum 2.5 g/dL (3.2-5.0); Alkaline Phosphatase 95 U/L (45-117); Anion Gap 11 (5-15); BUN 36 mg/dL (7-18); BUN/Creat Ratio 13.5 RATIO (10-20); Calcium,Total 7.4 mg/dL (8.5-10.1); Chloride 107 mmol/L (98-107); Creatinine, Serum 2.67 mg/dL (0.70-1.30); EST Glomerular Filtration Rate 24 mL/min (>60); Est Glom Filt Rate - Afr Amer 30 mL/min (>60); Estimated Creatinine Clearance 20.28 ml/min; Globulin 3.3 g/dL (2.2-4.2); Glucose 119 mg/dL (74-106); Potassium 4.3 mmol/L (3.5-5.1); Protein, Total 5.8 g/dL (6.4-8.2); Sodium Level 141 mmol/L (136-145)
--- NOTE | 2020-04-27 22:54 | RAD_ITS ---
HISTORY: CENTRAL LINE PLACEMENT EXAMINATION/TECHNIQUE: XR Chest 1 View: Portable upright COMPARISON: 04/27/2020 and 04/06/2020 FINDINGS: Cardiac telemetry leads in place. Medical devices: Right IJ central venous line with the line tip in the region of the right atrium. No pneumothorax. Normal heart size. Bibasilar chronic appearing interstitial thickening. No focal infiltrate or pulmonary consolidation. No vascular congestion or significant pleural effusion. Prior median sternotomy. Left subclavian dual-chamber transvenous pacemaker with electrode tips in the region of the right atrium and right ventricle. RAD/CXR for Line Placement IMPRESSION: 1. Right IJ central venous line with the catheter tip in the region of the right atrium. No pneumothorax. 2. No focal infiltrate or CHF. at [id number] Reported and signed by: Francisco Landers MD Electronically Signed: Francisco Landers, at 23:45 EST Tel , Service support ,
[2020-04-27 22:57] LABS: Reflex Lactate? Y
[2020-04-27] MEDS: dexAMETHasone 4 MG/ML Vial 6 MG IV (23:42)
--- NOTE | 2020-04-27 23:47 | HP.PCM_ITS ---
Problem List (1) Hypotension Status: Acute (2) COVID-19 Status: Acute (3) Hx of CABG Status: Acute (4) BRIAN (acute kidney injury) Status: Acute (5) Shock Status: Acute (6) Presence of permanent cardiac pacemaker Status: Chronic (7) Presence of stent in coronary artery Status: Chronic Comment: PTCA/BMS of RCA @ [facility] 06/2006 (8) Type 2 diabetes mellitus Status: Chronic (9) Mixed hyperlipidemia Status: Chronic (10) Essential hypertension Status: Chronic (11) Atherosclerotic heart disease of [place] coronary artery without angina pectoris Status: Chronic Qualifiers: [place] vs. transplanted heart: [place] heart Qualified Code(s): I25.10 - Atherosclerotic heart disease of [place] coronary artery without angina pectoris Comment: PTCA/BMS of RCA @ [facility] 06/2006 (12) Atrioventricular dissociation Status: Chronic (13) Paroxysmal supraventricular tachycardia Status: Chronic (14) Bradycardia, sinus Status: Chronic History of Present Illness Date of Admission: 04/27/20 Chief Complaint: hypotension The patient is a 85 year old M with a significant history of CAD status post stents and CABG 10 days ago who presents emergency department with hypotension. A day before his presentation and on the day of presentation he realized that his home blood pressure was low. Also his pulse was up. Further he felt weak and was fatigued. He has a cough which developed after his CABG. At the time the cough is productive but he swallows the sputum and has no noted color. He has lost taste sensation. He denies shortness of breath or anosmia. Emergent department doctor discussed the case with [facility] since he had CABG about 10 days ago but there was no bed available. ED doctor discussed the case with other tertiary institutions again there were no bed. Per emergent department doctor cardiothoracic surgeon at [facility] recommended Glen-Synephrine infusion and to admit at a hospital. Emergent department doctor discussed the case with Dr. Grey petroleum production engineer at the hospital who made recommendations and patient was accepted at our hospital. Past Medical History Past Medical History (Chronic Problems): Chronic Problems (Last Reviewed 04/28/20 @ 05:[address] Boubacar Sellers MD) Presence of permanent cardiac pacemaker (Chronic ~2006) Presence of stent in coronary artery (Chronic ~06/2006) PTCA/BMS of RCA @ [facility] 06/2006 Type 2 diabetes mellitus (Chronic) Mixed hyperlipidemia (Chronic) Essential hypertension (Chronic) Atherosclerotic heart disease of [place] coronary artery without angina pectoris (Chronic) PTCA/BMS of RCA @ [facility] 06/2006 Atrioventricular dissociation (Chronic) Paroxysmal supraventricular tachycardia (Chronic) Bradycardia, sinus (Chronic) Medical History: Medical History (Last Reviewed 04/28/20 @ 06:[address] Boubacar Sellers MD) Presence of stent in coronary artery (Chronic) Onset Date: ~06/2006 Z95.5 PTCA/BMS of RCA @ [facility] 06/2006 Type 2 diabetes mellitus (Chronic) E11.9 Mixed hyperlipidemia (Chronic) E78.2 Essential hypertension (Chronic) I10 Atherosclerotic heart disease of [place] coronary artery without angina pectoris (Chronic) I25.10 PTCA/BMS of RCA @ [facility] 06/2006 Atrioventricular dissociation (Chronic) I45.89 Paroxysmal supraventricular tachycardia (Chronic) I47.1 Bradycardia, sinus (Chronic) R00.1 Diabetes mellitus (Inactive) E11.9 HLD (hyperlipidemia) (Inactive) E78.5 HTN (hypertension) (Inactive) I10 Allergies beta blockers Adverse Reaction (Uncoded 04/27/20 18:15) confusion PARTICULAR ONES Home Medications: Ambulatory Orders Medication Instructions Recorded Aspirin [Aspirin, Baby] 81 mg PO DAILY@0800 06/23/15 Cholecalciferol (VIT D3) [Vitamin 2,000 unit PO DAILY 06/23/15 D] Timolol 0.5% [Timoptic] 1 drp EACH EYE DAILY 06/23/15 balsalazide 750 mg capsule 6 cap PO QDAY cap 05/25/18 liraglutide 0.6 mg/0.1 mL (18 mg/3 1.2 mg SC DAILY ml 05/17/19 mL) subcutaneous pen injector atenolol 50 mg tablet 50 mg PO DAILY #90 tab 10/27/19 enalapril maleate 10 mg tablet 10 mg PO DAILY #90 tab 10/27/19 nitroglycerin 0.4 mg sublingual 0.4 mg SUBLINGUAL Q5-15M PRN #25 03/28/20 tablet tab dapagliflozin 10 mg tablet 10 mg PO DAILY 04/06/20 Atorvastatin Calcium [Lipitor] 20 mg PO MOWEFR 04/27/20 Glyburide/Metformin HCl 4 ea PO DAILY 04/27/20 [Glyburide-Metformin 5-500 mg] Surgical History: Surgical History (Last Reviewed 04/28/20 @ 06:[address] Boubacar Sellers MD) Presence of coronary angioplasty implant and graft Onset Date: ~06/2006 Z95.5 PTCA/BMS of RCA @ [facility] 06/2006 History of left heart catheterization (LHC) Onset Date: ~04/11/20 Z98.890 LEFT MAIN: Mild calcification; LEFT ANTERIOR DESCENDING ARTERY:PROX LAD: Moderate calcification, 50 - 75 % Stenosis, MID LAD: Hazy: 75 % Stenosis, Mild luminal irregularities, SEPTAL: Ostial: 50 % Stenosis; CIRCUMFLEX ARTERY:PROX CIRC: Mild calcification, Mild luminal irregularities, MID CIRC: 50 - 75 % Stenosis, DISTAL CIRC: 75 % Stenosis, OM 1: Proximal - 25 % Stenosis, Mid - Mild luminal irregularities; RIGHT CORONARY ARTERY: Mild luminal irregularities, PROX RCA: Mild calcification, MID RCA: Previously placed stent is occluded, Mid to distal: filling from bridging collaterals: fills late with mid to distal 50 - 75 % Stenosis; COLLATERAL FLOW: Collateral flow from Left to Right; RECOMMENDATIONS:Surgery consult for coronary revascularization per cardiac cath 04/11/20 Smoking Status: Former smoker - *Family History Maternal Family History: Family History (Last Reviewed 04/28/20 @ 00:[address] Boubacar Sellers MD) Father CAD (coronary artery disease) Myocardial infarction, Onset Age: 75 Mother Cancer Sister Hypertension Review of Systems Constitutional: Reports: Weakness, Fatigue. Denies: Chills, Fever, Weight Change HEENT: Denies: Head Aches, Sinus Congestion, Sinus Drainage Cardiovascular: Denies: Chest Pain, Palpitations Respiratory: Reports: Cough, Sputum production. Denies: Shortness of breath at rest Gastrointestinal: Denies: Abdominal Pain, Nausea, Vomiting Genitourinary: Denies: Dysuria Musculoskeletal: Denies: Joint Pain, Joint Tenderness Skin: Denies: Rash, Wounds Neurological: Denies: Numbness, Tingling, Focal weakness Psychiatric: Denies: Anxiety, Depression, Homicidal Ideations, Suicidal Ideations Hematologic/ Lymphatic: Denies: Easy Bruising, Easy Bleeding VTE Information - Inpt Only VTE Present on Admission: No VTE Mechan Device Prophylaxis: None VTE Pharm Prophylaxis ordered?: Yes Patient Problems: Active and Suspected Problems (Last Reviewed 04/28/20 @ 05:[address] Boubacar Sellers MD) COVID-19 (Acute) Hx of CABG (Acute) BRIAN (acute kidney injury) (Acute) Shock (Acute) Hypotension (Acute) - Physical Exam Vitals/I&O's: Vital Signs Temp Pulse Resp BP Pulse Ox 97.9 F 80 20 H 67/42 L 99 04/27/20 23:00 04/27/20 23:00 04/27/20 23:00 04/27/20 23:40 04/27/20 23:00 Oxygen Flow Rate (L/min) 2 Oxygen Delivery Method Nasal Cannula Weight: 93.44 kg Body Mass Index (BMI) 31.3 Intake and Output for Last 24 Hours 04/25/20 04/26/20 04/27/20 23:59 23:59 23:59 Intake Total 3055.25 / 3055.25 Balance 3055.25 / 3055.25 General: Alert, Oriented x3, Cooperative HEENT: Atraumatic, PERRLA, EOMI, Normocephalic Neck: Supple, No JVD, Negative Carotid Bruits Lungs: Clear to auscultation, Normal air movement, No rhonchi, No wheeze, No rales, - - Well approximated midline incision from chest to abdomen. Cardiovascular: Regular rate, Normal S1, Normal S2, No murmurs Abdomen: Bowel Sounds Present, Soft, Non Tender, - - 3 horizontal incisions on upper abdomen;well approximated. Extremities: No edema, Capillary Refill Less than 3 Seconds Skin: Excoriated - Right elliott Musculoskeletal: No Tenderness to Palpation of Joints or Extremities Neurological: Cranial nerves II-XII grossly intact Psych/Mental Status: Normal Affect, Appropriate Microbiology Past 72 Hours 04/27/20 19:15 Mucosa - Nose SARS-CoV-2 Antigen (Rapid) - Final SARS-CoV-2 (COVID 19) Laboratory Results 04/27/20 18:45: WBC 4.7, RBC 3.37 L, Hgb 9.7 L, Hct 32.8 L, MCV 97.3 H, MCH 28.8, MCHC 29.6 L, RDW Std Deviation 49.9 H, RDW Coeff of Per 14.1, Plt Count 240, MPV 10.9, Immature Gran % (Auto) 1.500 H, Neut % (Auto) 69.9, Lymph % (Auto) 18.9 L, [place] % (Auto) 9.1, Eos % (Auto) 0.2, Baso % (Auto) 0.4, Absolute Neuts (auto) 3.3, Absolute Lymphs (auto) 0.89, Nucleated RBC % 0.8 04/27/20 18:45: PT Cancelled, INR Cancelled, APTT Cancelled 04/27/20 18:45: Sodium Cancelled, Potassium Cancelled, Chloride Cancelled, Carbon Dioxide Cancelled, Anion Gap Cancelled, BUN Cancelled, Creatinine Cancelled, Estim Creat Clear Calc Cancelled, Est GFR (MDRD) Af Amer Cancelled, Est GFR (MDRD) Non-Af Cancelled, BUN/Creatinine Ratio Cancelled, Glucose Cancelled, Calcium Cancelled, Total Bilirubin Cancelled, AST Cancelled, ALT Cancelled, Alkaline Phosphatase Cancelled, Troponin I Cancelled, Total Protein Cancelled, Albumin Cancelled, Globulin Cancelled, Albumin/Globulin Ratio Cancelled 04/27/20 18:45: Lactic Acid 4.6 H* 04/27/20 20:25: Sodium 141, Potassium 4.3, Chloride 107, Carbon Dioxide 23.0, Anion Gap 11, BUN 36 H, Creatinine 2.67 H, Estim Creat Clear Calc 20.28, Est GFR (MDRD) Af Amer 30 L, Est GFR (MDRD) Non-Af 24 L, BUN/Creatinine Ratio 13.5, Glucose 119 H, Calcium 7.4 L, Total Bilirubin 0.30, AST 138 H, ALT 36, Alkaline Phosphatase 95, Troponin I 0.697 H*, Total Protein 5.8 L, Albumin 2.5 L, Globulin 3.3, Albumin/Globulin Ratio 0.8 L 04/27/20 20:25: PT 15.4 H, INR 1.3, APTT 42.9 H 04/27/20 23:15: Lactic Acid Pending Current Medications Phenylephrine HCl 10 mg/ (Sodium Chloride) 250 mls @ 15 mls/hr CONT INF .Q16H40 M ROSARIO; Protocol Last Titration: 04/27/20 23:40 Dose: 30 mcg/min, 45 mls/hr Documented by: Assessment/Plan All Active Problems (Last Reviewed 04/28/20 @ 05:[address] Boubacar Sellers MD) COVID-19 (Acute) Hx of CABG (Acute) BRIAN (acute kidney injury) (Acute) Shock (Acute) Hypotension (Acute) Shock Patient thinks that he took his home blood pressure medications as ordered but is not entirely sure. Etiology is unclear. Patient received multiple boluses of IV fluids at emergency department. Continue normal saline 100 MLS per hour for 1 more liter. The triple-lumen IJ was placed by emergent department doctor and Glen-Synephrine infusion was started. Continue Glen-Synephrine infusion. Hold all home blood pressure medications. We will get echocardiogram per Dr. Grey recommendations pulse of emergency department doctor. Lactic acidosis likely secondary to shock. IV fluids and vasopressors as above Will consult negative notcher. Elevated troponin Cannot rule out a post CABG etiology Trend Consult Cardiology. COVID-19 infection Patient denies shortness of breath. However discussed with emergency department doctor and Decadron IV ordered. While inpatient we will order Decadron p.o. daily. No remdesivir at this time especially as patient has BRIAN. Check a procalcitonin; strep pneumonia; and Legionella pneumonia antigen. Received Zosyn at emergency department. Zosyn continued MRSA nasal screen ordered. BRIAN Likely secondary to hemodynamic changes. Creatinine 2.67 Creatinine baseline is less than 1. IV hydration and vasopressors as above Trend BMP. R elliott wound wound care consult dry dressing to right elliott DVT prophylaxis Subcutaneous Lovenox. Inpatient E&M: [id number] Init Hosp L3
[2020-04-28] VITALS (47 sets, daily range): BP systolic 90–148; BP diastolic 46–80; PULSE 79–85; RESP 15–28; TEMP 36.3–36.7; O2SAT 93–100; BMI 34.7
--- NOTE | 2020-04-28 00:01 | NURSING ---
dr notified of elevated lactic 2.0
[2020-04-28] MEDS: 0.9% Normal Saline 1,000 ML 100 ML IV (01:00)
--- NOTE | 2020-04-28 01:05 | ECHOCS_ITS ---
Reason For Study: Pericardial Effusion Procedure This was a 2D Doppler, Color Flow transthoracic echocardiogram. The study was technically difficult. Contrast injection was performed. Patient scanned sitting upright due to recent CABG and discomfort. Exam performed portable in ICU/CCU. The exam was abbreviated due to the COVID 19 protocol. Left Ventricle Normal LV size. Left ventricular systolic function is normal. The estimated ejection fraction is 55 %. Post operative septal motion. No regional wall motion abnormalities noted. Right Ventricle Normal RV size. ICD or pacer leads identified within the right ventricle. Normal systolic function. Mitral Valve Bileaflet diffuse mitral valve thickening. Trivial mitral valve insufficiency. Aortic Valve Trisinus/trileaflet aortic valve. Moderate diffuse aortic valve thickening. Pulmonic Valve Normal pulmonic valve. Great Vessels Normal aortic root. The pulmonary artery is normal size. Pericardium/Pleural Small pericardial effusion. There are no echocardiographic indications of cardiac tamponade. Medication Diluted definity 2ml given slow IV push to enhance endocardial definition. MMode/2D Measurements & Calculations LVIDd: 4.1 cm IVSd: 1.1 cm LVOT diam: 2.0 cm LVIDs: 2.8 cm LVPWd: 0.79 cm LVOT area: 3.3 cm2 FS: 30.6 % Aortic Valve Planimetry: 1.4 cm2 Doppler Measurements & Calculations TR max uday: 284.6 cm/sec TR max P.4 mmHg Interpretation Summary Normal LV size. Left ventricular systolic function is normal. The estimated ejection fraction is 55 %. Post operative septal motion. Small pericardial effusion. There are no echocardiographic indications of cardiac tamponade. Contrast injection was performed. Ordering Physician: Boubacar Sellers Performed By: Yimi Jacobson RCS
[2020-04-28 02:31] LABS: M R Staph aureus DNA By PCR Negative (Negative); Probe Check PASS; Specimen Processing Control PASS
[2020-04-28] MEDS: 0.9% Saline Lock 10 ML Syringe IV (04:50)
[2020-04-28 05:12] LABS: Absolute Lymphocyte Count 0.46 X10^3/uL (0.83-4.51); Absolute Neutrophil Count 4.4 X10^3/uL (2.0-7.7); Basophil# 0.01 X10^3/uL; Basophil% 0.2 % (0-1); Eosinophil# 0.01 X10^3/uL; Eosinophils% 0.2 % (0-5); Hematocrit 31.1 % (40-54); Hemoglobin 9.4 g/dL (13.0-16.5); Lymphocyte # 0.46 X10^3/ul (4.0); Lymphocyte % 9.1 % (19-41); Mean Corp Hgb Conc 30.2 g/dL (32-36); Mean Corpuscular Hgb 29.4 pg (27.0-32.0); Mean Corpuscular Volume 97.2 fL (80-94); Mean Platelet Vol. 10.6 fl (6.2-12.0); Monocyte# 0.11 X10^3/uL; Monocyte% 2.2 % (0-10); NRBC Flagged by Analyzer 0.4 % (0-5); Neutrophil # 4.36 X10^3/uL (2.7-7.7); Neutrophil % 86.7 % (47-70); POSITIVE DIFFERENTIAL YES; Platelet Count 237 K/mm3 (150-450); RBC Distribution Width CV 14.1 % (11.6-14.6); RBC Distribution Width SD 49.7 fl (35.1-43.9)
[2020-04-28 05:15] LABS: Differential Indicated SCAN CRITERIA MET
[2020-04-28 05:31] LABS: Differential Comment SCANNED; Platelet Estimate ADEQUATE (ADEQ)
[2020-04-28 05:33] LABS: ALB/GLOB Ratio 0.7 RATIO (0.9-2.4); AST(SGOT) 167 U/L (15-37); Alanine Aminotransfer ALT/SGPT 43 U/L (16-61); Albumin, Serum 2.5 g/dL (3.2-5.0); Alkaline Phosphatase 99 U/L (45-117); Anion Gap 8 (5-15); BUN 39 mg/dL (7-18); BUN/Creat Ratio 14.9 RATIO (10-20); Calcium,Total 7.4 mg/dL (8.5-10.1); Chloride 109 mmol/L (98-107); Creatinine, Serum 2.62 mg/dL (0.70-1.30); EST Glomerular Filtration Rate 25 mL/min (>60); Est Glom Filt Rate - Afr Amer 30 mL/min (>60); Estimated Creatinine Clearance 20.67 ml/min; Globulin 3.5 g/dL (2.2-4.2); Glucose 154 mg/dL (74-106); Potassium 4.6 mmol/L (3.5-5.1); Sodium Level 139 mmol/L (136-145)
--- NOTE | 2020-04-28 07:33 | PCM.PN.HOSP ---
Patient Problems: Active and Suspected Problems (Last Reviewed 04/28/20 @ 06:[address] Boubacar Sellers MD) COVID-19 (Acute) Hx of CABG (Acute) BRIAN (acute kidney injury) (Acute) Shock (Acute) Hypotension (Acute) Reason for Visit: Follow-up on hypotension/COVID-19 infection/Recent CABG Subjective: Patient was seen and examined. He remains on Neosynephrine drip. He denies fever, dizziness or chest pain. He has been coughing, unproductive. On 2L oxygen. Objective: Physical exam: General: Alert, Oriented x3, Cooperative, on 2L oxygen HEENT: Atraumatic, PERRLA, EOMI, Normocephalic Neck: Supple, No JVD, Negative Carotid Bruits Lungs: Clear to auscultation, Normal air movement, No rhonchi, No wheeze, No rales, - - Well approximated healing midline incision from chest to abdomen. Cardiovascular: Regular rate, Normal S1, Normal S2, No murmurs Abdomen: Bowel Sounds Present, Soft, Non Tender, - - 3 horizontal incisions on upper abdomen;well approximated. Extremities: No edema, Capillary Refill Less than 3 Seconds Skin: Excoriated - Right elliott Musculoskeletal: No Tenderness to Palpation of Joints or Extremities Neurological: Cranial nerves II-XII grossly intact Psych/Mental Status: Normal Affect, Appropriate Vitals/I&O's: Vital Signs Temp Pulse Resp BP Pulse Ox 97.4 F L 80 19 H 134/78 H 95 04/28/20 01:04 04/28/20 06:00 04/28/20 06:00 04/28/20 06:00 04/28/20 06:00 Oxygen Flow Rate (L/min) 2 Oxygen Delivery Method Nasal Cannula Weight: 103.6 kg Body Mass Index (BMI) 34.7 Intake and Output for Last 24 Hours 04/26/20 04/27/20 04/28/20 23:59 23:59 23:59 Intake Total 3055.25 / 3055.25 517.50 / 517.50 Output Total 360 / 360 Balance 3055.25 / 3055.25 157.50 / 157.50 Microbiology Past 72 Hours 04/28/20 04:45 Urine, Clean Catch Legionella Antigen - Final 04/28/20 04:45 Urine, Clean Catch Streptococcus pneumoniae Antigen (M - Final 04/27/20 19:15 Mucosa - Nose SARS-CoV-2 Antigen (Rapid) - Final SARS-CoV-2 (COVID 19) Laboratory Results 04/27/20 18:45: WBC 4.7, RBC 3.37 L, Hgb 9.7 L, Hct 32.8 L, MCV 97.3 H, MCH 28.8, MCHC 29.6 L, RDW Std Deviation 49.9 H, RDW Coeff of Per 14.1, Plt Count 240, MPV 10.9, Immature Gran % (Auto) 1.500 H, Neut % (Auto) 69.9, Lymph % (Auto) 18.9 L, [place] % (Auto) 9.1, Eos % (Auto) 0.2, Baso % (Auto) 0.4, Absolute Neuts (auto) 3.3, Absolute Lymphs (auto) 0.89, Nucleated RBC % 0.8 04/27/20 18:45: PT Cancelled, INR Cancelled, APTT Cancelled 04/27/20 18:45: Sodium Cancelled, Potassium Cancelled, Chloride Cancelled, Carbon Dioxide Cancelled, Anion Gap Cancelled, BUN Cancelled, Creatinine Cancelled, Estim Creat Clear Calc Cancelled, Est GFR (MDRD) Af Amer Cancelled, Est GFR (MDRD) Non-Af Cancelled, BUN/Creatinine Ratio Cancelled, Glucose Cancelled, Calcium Cancelled, Total Bilirubin Cancelled, AST Cancelled, ALT Cancelled, Alkaline Phosphatase Cancelled, Troponin I Cancelled, Total Protein Cancelled, Albumin Cancelled, Globulin Cancelled, Albumin/Globulin Ratio Cancelled 04/27/20 18:45: Lactic Acid 4.6 H* 04/27/20 20:25: Sodium 141, Potassium 4.3, Chloride 107, Carbon Dioxide 23.0, Anion Gap 11, BUN 36 H, Creatinine 2.67 H, Estim Creat Clear Calc 20.28, Est GFR (MDRD) Af Amer 30 L, Est GFR (MDRD) Non-Af 24 L, BUN/Creatinine Ratio 13.5, Glucose 119 H, Calcium 7.4 L, Total Bilirubin 0.30, AST 138 H, ALT 36, Alkaline Phosphatase 95, Troponin I 0.697 H*, Total Protein 5.8 L, Albumin 2.5 L, Globulin 3.3, Albumin/Globulin Ratio 0.8 L 04/27/20 20:25: PT 15.4 H, INR 1.3, APTT 42.9 H 04/27/20 23:15: Lactic Acid 2.0 04/28/20 01:00: Procalcitonin Pending 04/28/20 01:00: MRSA (PCR) Negative 04/28/20 01:00: Troponin I 0.694 H* 04/28/20 04:45: WBC 5.0, RBC 3.20 L, Hgb 9.4 L, Hct 31.1 L, MCV 97.2 H, MCH 29.4, MCHC 30.2 L, RDW Std Deviation 49.7 H, RDW Coeff of Per 14.1, Plt Count 237, MPV 10.6, Immature Gran % (Auto) 1.600 H, Neut % (Auto) 86.7 H, Lymph % (Auto) 9.1 L, [place] % (Auto) 2.2, Eos % (Auto) 0.2, Baso % (Auto) 0.2, Absolute Neuts (auto) 4.4, Absolute Lymphs (auto) 0.46 L, Nucleated RBC % 0.4, Differential Comment SCANNED, Platelet Estimate ADEQUATE 04/28/20 04:45: Sodium 139, Potassium 4.6, Chloride 109 H, Carbon Dioxide 22.0, Anion Gap 8, BUN 39 H, Creatinine 2.62 H, Estim Creat Clear Calc 20.67, Est GFR (MDRD) Af Amer 30 L, Est GFR (MDRD) Non-Af 25 L, BUN/Creatinine Ratio 14.9, Glucose 154 H, Calcium 7.4 L, Total Bilirubin 0.40, AST 167 H, ALT 43, Alkaline Phosphatase 99, Total Protein 6.0 L, Albumin 2.5 L, Globulin 3.5, Albumin/Globulin Ratio 0.7 L 04/28/20 04:45: Troponin I 0.545 H Current Medications Acetaminophen (Acetaminophen 325 Mg Tablet) 650 mg PO Q6H PRN PRN PRN Reason: Pain Score 1-10/Temp > 100.7 F Aspirin (Aspirin 81 Mg Tab.Chew) 81 mg PO DAILY [facility] Atorvastatin Calcium (Atorvastatin Calcium 20 Mg Tablet) 20 mg PO [id number]@2200 [facility] Balsalazide (Balsalazide Disodium 750 Mg Capsule) 4,500 mg PO DAILY [facility] Cholecalciferol (Cholecalciferol (Vit D3) 1,000 Unit (25mcg)) 2,000 unit PO DAILY [facility] Dexamethasone (Dexamethasone 2 Mg Tablet) 6 mg PO DAILY [facility] Enoxaparin Sodium (Enoxaparin 30 Mg/0.3 Ml Syringe) 30 mg SC DAILY [facility] Sodium Chloride () 1,000 mls @ 100 mls/hr IV .Q10H ROSARIO Stop: 04/28/20 11:04 Last Admin: 04/28/20 01:00 Dose: 100 mls/hr Documented by: Piperacillin Sod/Tazobactam (Sod 3.375 gm/ Sodium Chloride) 50 mls @ 12.5 mls/hr IV Q12 ROSARIO Sodium Chloride () 250 mls @ 15 mls/hr IV .[id number] PRN PRN Reason: Saline Flush Sodium Chloride () 250 mls @ 15 mls/hr IV .[id number] PRN PRN Reason: Additional IVPB Infusion Phenylephrine HCl 10 mg/ (Sodium Chloride) 250 mls @ 15 mls/hr CONT INF .[id number] ROSARIO; Protocol Last Admin: 04/28/20 06:50 Dose: 50 mcg/min, 75 mls/hr Documented by: Melatonin (Melatonin 3 Mg Tablet) 3 mg PO QHS PRN PRN PRN Reason: INSOMNIA Ondansetron HCl (Ondansetron 4 Mg/2 Ml Vial) 4 mg IV Q8H PRN PRN PRN Reason: NAUSEA/VOMITING Sodium Chloride (0.9% Saline Lock 10 Ml Syringe) 10 - 40 ml IV UD PRN PRN Reason: SALINE FLUSH Last Admin: 04/28/20 04:50 Dose: 10 ml Documented by: Timolol Maleate (Timolol 0.5% 5ml Opth.Btl) 1 drop EACH EYE DAILY [facility] STROKE Vital Signs/Narrative: Vital Signs Pulse Resp BP Pulse Ox 04/28/20 06:00 80 19 H 134/78 H 95 04/28/20 05:37 80 25 H 93 04/28/20 05:00 80 22 H 125/66 H 93 04/28/20 04:45 114/61 04/28/20 04:30 90/73 04/28/20 04:15 129/59 H 04/28/20 04:00 80 21 H 121/63 H 97 Medical Necessity - Tobacco Use Smoking Status: Former smoker Assessment/Plan All Active Problems (Last Reviewed 04/28/20 @ 06:[address] Boubacar Sellers MD) COVID-19 (Acute) Hx of CABG (Acute) BRIAN (acute kidney injury) (Acute) Shock (Acute) Hypotension (Acute) 1. Acute hypotension, unclear etiology; cardiogenic shock vs medication side-effect versus septic shock (from probable infected abdominal wound) Patient was on Glen-Synephrine overnight, transitioned to dopamine drip by cardiology Blood pressures remain improved. We will continue to wean off pressors Blood cultures are pending. WBC count is normal Chest x-ray showed no acute infiltrate. Likely etiology may be from abdominal wounds post CABG Wound cultures from wound is pending Follow-up on 2D echo 2. Lactic acidosis secondary to hypotension, resolved 3. Elevated troponin likely secondary to demand ischemia, patient with recent CABG Continue on aspirin, statin. Atenolol on hold Cardiology following, will follow up on 2D echo, 3. Acute COVID-19 infection with hypoxia On oral dexamethasone. Not a candidate for plasma. Not a candidate for remdesivir because of acute kidney injury 4. BRIAN, likely prerenal from cardiorenal versus dehydration Creatinine appears unchanged at 2.62. Recent creatinine( 0.88 Patient received IV fluids and vasopressors; may need to be started on Lasix Will hold off on starting on Lasix for now, repeat blood work in a.m. Will check urine sodium, creatinine Will consider nephrology consult if creatinine still remains elevated 5. Acute hypoxic respiratory insufficiency secondary to acute COVID infection, currently on 2 L of oxygen Continue with breathing treatments, IV steroids, encourage use of incentive spirometer. Wean off oxygen for SPO2 more than 94% 6. Type II DM, off home dapagliflozin and glyburide/Metformin as well as liraglutide Would continue to monitor on insulin sliding scale with blood glucose checks 7. CAD status post recent CABG/possible stent in RCA/status post pacemaker, management as in #3 8. DVT PPx- Lovenox SC BID Inpatient E&M: [id number] [place] [id number]
--- NOTE | 2020-04-28 08:41 | EKG12_ITS ---
Test Reason : Blood Pressure : / mmHG Vent. Rate : 080 BPM Atrial Rate : 093 BPM P-R Int : 000 ms QRS Dur : 184 ms QT Int : 472 ms P-R-T Axes : 005 261 064 degrees QTc Int : 544 ms Electronic ventricular pacemaker Confirmed by PHILLIP ARANDA, NELLIE ([id number]), editor magazine ORA MEZA ([id number]) on 05/03/2020 10:03:31 AM Referred By: PORTIA Confirmed By:NELLIE FISHER MD
[2020-04-28] MEDS: TITRATION PARAMETER CHANGE 1 EACH IV (08:46)
--- NOTE | 2020-04-28 09:24 | PCM.CON.CC ---
Problem List (1) COVID-19 Status: Acute (2) Hx of CABG Status: Acute (3) BRIAN (acute kidney injury) Status: Acute (4) Hypotension Status: Acute (5) Presence of permanent cardiac pacemaker Status: Chronic (6) Presence of stent in coronary artery Status: Chronic Comment: PTCA/BMS of RCA @ [facility] 06/2006 (7) Type 2 diabetes mellitus Status: Chronic (8) Mixed hyperlipidemia Status: Chronic (9) Essential hypertension Status: Chronic (10) Atherosclerotic heart disease of [place] coronary artery without angina pectoris Status: Chronic Qualifiers: [place] vs. transplanted heart: [place] heart Qualified Code(s): I25.10 - Atherosclerotic heart disease of [place] coronary artery without angina pectoris Comment: PTCA/BMS of RCA @ [facility] 06/2006 (11) Atrioventricular dissociation Status: Chronic Reason for Consult Date of Consultation: 04/28/20 Reason for Consultation: COVID-19 History of Present Illness: The patient is an 85 year old M with past medical history listed below, who presented [facility] 04/27/2020 secondary to hypotension. Patient reportedly had a CABG procedure completed at [facility] approximately 10 days ago. Patient had come home 5 days ago. For the last 3 days, patient had noted some lower blood pressures and higher heart rates. Patient had reported some mild shortness of breath and a cough. Patient also reported a change in taste and smell. Patient denied any fever, chills, rhinorrhea or congestion. Patient did not had any nausea or vomiting. Patient reported that he had been compliant with medications as ordered. In the ER, patient was noted to be hypotensive at 89/43 and tachycardic. Chest x-ray was suggestive of CHF and COVID-19 testing was positive. Patient did not have any significant leukocytosis. Patient was noted to have an elevated lactate at 4.6, troponin at 0.7, BUN of 36 and creatinine of 2.7. INR was slightly elevated at 1.3. Given patient's recent discharge, attempts at transferring patient back to [facility] were unsuccessful. Patient was initiated on Glen-Synephrine and cardiology was called. Troponins were cycled and patient was given a dose of Decadron. Patient saturations have remained marginal, so low-dose nasal cannula oxygen was initiated. Since being admitted, patient feels subjectively improved. Patient states that he has no taste or smell at this time. Patient states he has not really left his home since being discharged from [facility]. Patient has not required supplemental oxygen outside of postoperative course. Patient denies any new symptomatology. Patient has not had any sick contacts that he is aware of. Review of systems otherwise negative from a constitutional, HEENT, respiratory, cardiovascular, GI, genitourinary, musculoskeletal, skin, neurologic, psychiatric and hematologic system unless stated above. Past Medical History Past Medical History (Chronic Problems): Chronic Problems (Last Reviewed 04/28/20 @ 06:[address] Boubacar Sellers MD) Presence of permanent cardiac pacemaker (Chronic ~2006) Presence of stent in coronary artery (Chronic ~06/2006) PTCA/BMS of [facility] @ [facility] 06/2006 Type 2 diabetes mellitus (Chronic) Mixed hyperlipidemia (Chronic) Essential hypertension (Chronic) Atherosclerotic heart disease of [place] coronary artery without angina pectoris (Chronic) PTCA/BMS of [facility] @ [facility] 06/2006 Atrioventricular dissociation (Chronic) Paroxysmal supraventricular tachycardia (Chronic) Bradycardia, sinus (Chronic) Medical History: Medical History (Last Reviewed 04/28/20 @ 06:[address] Boubacar Sellers MD) Presence of stent in coronary artery (Chronic) Onset Date: ~06/2006 Z95.5 PTCA/BMS of [facility] @ [facility] 06/2006 Type 2 diabetes mellitus (Chronic) E11.9 Mixed hyperlipidemia (Chronic) E78.2 Essential hypertension (Chronic) I10 Atherosclerotic heart disease of [place] coronary artery without angina pectoris (Chronic) I25.10 PTCA/BMS of RCA @ [facility] 06/2006 Atrioventricular dissociation (Chronic) I45.89 Paroxysmal supraventricular tachycardia (Chronic) I47.1 Bradycardia, sinus (Chronic) R00.1 Diabetes mellitus (Inactive) E11.9 HLD (hyperlipidemia) (Inactive) E78.5 HTN (hypertension) (Inactive) I10 Allergies beta blockers Adverse Reaction (Uncoded 04/27/20 18:15) confusion PARTICULAR ONES Home Medications: Ambulatory Orders Medication Instructions Recorded Aspirin [Aspirin, Baby] 81 mg PO DAILY@0800 06/23/15 Cholecalciferol (VIT D3) [Vitamin 2,000 unit PO DAILY 06/23/15 D] Timolol 0.5% [Timoptic] 1 drp EACH EYE DAILY 06/23/15 balsalazide 750 mg capsule 6 cap PO QDAY cap 05/25/18 liraglutide 0.6 mg/0.1 mL (18 mg/3 1.2 mg SC DAILY ml 05/17/19 mL) subcutaneous pen injector atenolol 50 mg tablet 50 mg PO DAILY #90 tab 10/27/19 enalapril maleate 10 mg tablet 10 mg PO DAILY #90 tab 10/27/19 nitroglycerin 0.4 mg sublingual 0.4 mg SUBLINGUAL Q5-15M PRN #25 03/28/20 tablet tab dapagliflozin 10 mg tablet 10 mg PO DAILY 04/06/20 Atorvastatin Calcium [Lipitor] 20 mg PO MOWEFR 04/27/20 Glyburide/Metformin HCl 4 ea PO DAILY 04/27/20 [Glyburide-Metformin 5-500 mg] Surgical History: Surgical History (Last Reviewed 04/28/20 @ 06:[address] Boubacar Sellers MD) Presence of coronary angioplasty implant and graft Onset Date: ~06/2006 Z95.5 PTCA/BMS of RCA @ [facility] 06/2006 History of left heart catheterization (LHC) Onset Date: ~04/11/20 Z98.890 LEFT MAIN: Mild calcification; LEFT ANTERIOR DESCENDING ARTERY:PROX LAD: Moderate calcification, 50 - 75 % Stenosis, MID LAD: Hazy: 75 % Stenosis, Mild luminal irregularities, SEPTAL: Ostial: 50 % Stenosis; CIRCUMFLEX ARTERY:PROX CIRC: Mild calcification, Mild luminal irregularities, MID CIRC: 50 - 75 % Stenosis, DISTAL CIRC: 75 % Stenosis, OM 1: Proximal - 25 % Stenosis, Mid - Mild luminal irregularities; RIGHT CORONARY ARTERY: Mild luminal irregularities, PROX RCA: Mild calcification, MID RCA: Previously placed stent is occluded, Mid to distal: filling from bridging collaterals: fills late with mid to distal 50 - 75 % Stenosis; COLLATERAL FLOW: Collateral flow from Left to Right; RECOMMENDATIONS:Surgery consult for coronary revascularization per cardiac cath 04/11/20 Smoking Status: Former smoker - *Family History Maternal Family History: Family History (Last Reviewed 04/28/20 @ 00:[address] Boubacar Sellers MD) Father CAD (coronary artery disease) Myocardial infarction, Onset Age: 75 Mother Cancer Sister Hypertension Review of Systems Comment: See HPI Patient Problems: Active and Suspected Problems (Last Reviewed 04/28/20 @ 06:[address] Boubacar Sellers MD) COVID-19 (Acute) Hx of CABG (Acute) BRIAN (acute kidney injury) (Acute) Shock (Acute) Hypotension (Acute) Objective: All imaging was personally reviewed. Chest x-ray shows triple-lumen in good placement. Mild CHF noted with cardiomegaly. No pulmonary function test, echocardiogram noted, but patient did have a cardiac catheterization on 04/11/2020 showing multivessel disease, but EF was not assessed. - Physical Exam Vitals/I&O's: Vital Signs Temp Pulse Resp BP Pulse Ox 36.3 C L 80 19 H 134/78 H 95 04/28/20 01:04 04/28/20 06:00 04/28/20 06:00 04/28/20 06:00 04/28/20 07:36 Oxygen Flow Rate (L/min) 2 Oxygen Delivery Method Nasal Cannula Weight: 103.6 kg Body Mass Index (BMI) 34.7 Intake and Output for Last 24 Hours 04/26/20 04/27/20 04/28/20 23:59 23:59 23:59 Intake Total 3055.25 / 3055.25 1310.83 / 1310.83 Output Total 360 / 360 Balance 3055.25 / 3055.25 950.83 / 950.83 General: Alert, Oriented x3, Cooperative, No apparent distress, - - Obese. No conversational dyspnea. HEENT: Atraumatic, PERRLA, EOMI, Normocephalic, - - No scleral injection or icterus noted Oral: Moist Mucosa, No Gingival or Mucosal Lesions/ Ulcerations Neck: Supple, No Nodes, Trachea Midline, JVD, Right Lungs: No rhonchi, No wheeze, No rales, Diminished, - - Symmetric expansion. Chest wound appears clean, dry and intact Cardiovascular: Normal S1, Normal S2, No murmurs, Irregular Rate, No rub noted, No Gallop Abdomen: Bowel Sounds Present, Soft, Non Tender, Non-Distended, Obese Extremities: No clubbing, No cyanosis, Edema - 1+ lower extremity Skin: No rashes, No breakdown, - - Slight ecchymosis over the sternum Musculoskeletal: No Tenderness to Palpation of Joints or Extremities Lymphatic: No Cervical, Supraclavicular, or Inguinal Adenopathy Neurological: Cranial nerves II-XII grossly intact, Neuro grossly intact, Motor Exam 5/5 strength throughout Psych/Mental Status: Alert and oriented to time, place, person, mood and affect Microbiology Past 72 Hours 04/28/20 04:45 Urine, Clean Catch Legionella Antigen - Final 04/28/20 04:45 Urine, Clean Catch Streptococcus pneumoniae Antigen (M - Final 04/27/20 19:15 Mucosa - Nose SARS-CoV-2 Antigen (Rapid) - Final SARS-CoV-2 (COVID 19) Laboratory Results 04/27/20 18:45: WBC 4.7, RBC 3.37 L, Hgb 9.7 L, Hct 32.8 L, MCV 97.3 H, MCH 28.8, MCHC 29.6 L, RDW Std Deviation 49.9 H, RDW Coeff of Per 14.1, Plt Count 240, MPV 10.9, Immature Gran % (Auto) 1.500 H, Neut % (Auto) 69.9, Lymph % (Auto) 18.9 L, Eddy % (Auto) 9.1, Eos % (Auto) 0.2, Baso % (Auto) 0.4, Absolute Neuts (auto) 3.3, Absolute Lymphs (auto) 0.89, Nucleated RBC % 0.8 04/27/20 18:45: PT Cancelled, INR Cancelled, APTT Cancelled 04/27/20 18:45: Sodium Cancelled, Potassium Cancelled, Chloride Cancelled, Carbon Dioxide Cancelled, Anion Gap Cancelled, BUN Cancelled, Creatinine Cancelled, Estim Creat Clear Calc Cancelled, Est GFR (MDRD) Af Amer Cancelled, Est GFR (MDRD) Non-Af Cancelled, BUN/Creatinine Ratio Cancelled, Glucose Cancelled, Calcium Cancelled, Total Bilirubin Cancelled, AST Cancelled, ALT Cancelled, Alkaline Phosphatase Cancelled, Troponin I Cancelled, Total Protein Cancelled, Albumin Cancelled, Globulin Cancelled, Albumin/Globulin Ratio Cancelled 04/27/20 18:45: Lactic Acid 4.6 H* 04/27/20 20:25: Sodium 141, Potassium 4.3, Chloride 107, Carbon Dioxide 23.0, Anion Gap 11, BUN 36 H, Creatinine 2.67 H, Estim Creat Clear Calc 20.28, Est GFR (MDRD) Af Amer 30 L, Est GFR (MDRD) Non-Af 24 L, BUN/Creatinine Ratio 13.5, Glucose 119 H, Calcium 7.4 L, Total Bilirubin 0.30, AST 138 H, ALT 36, Alkaline Phosphatase 95, Troponin I 0.697 H*, Total Protein 5.8 L, Albumin 2.5 L, Globulin 3.3, Albumin/Globulin Ratio 0.8 L 04/27/20 20:25: PT 15.4 H, INR 1.3, APTT 42.9 H 04/27/20 23:15: Lactic Acid 2.0 04/28/20 01:00: Procalcitonin Pending 04/28/20 01:00: MRSA (PCR) Negative 04/28/20 01:00: Troponin I 0.694 H* 04/28/20 04:45: WBC 5.0, RBC 3.20 L, Hgb 9.4 L, Hct 31.1 L, MCV 97.2 H, MCH 29.4, MCHC 30.2 L, RDW Std Deviation 49.7 H, RDW Coeff of Per 14.1, Plt Count 237, MPV 10.6, Immature Gran % (Auto) 1.600 H, Neut % (Auto) 86.7 H, Lymph % (Auto) 9.1 L, Eddy % (Auto) 2.2, Eos % (Auto) 0.2, Baso % (Auto) 0.2, Absolute Neuts (auto) 4.4, Absolute Lymphs (auto) 0.46 L, Nucleated RBC % 0.4, Differential Comment SCANNED, Platelet Estimate ADEQUATE 04/28/20 04:45: Sodium 139, Potassium 4.6, Chloride 109 H, Carbon Dioxide 22.0, Anion Gap 8, BUN 39 H, Creatinine 2.62 H, Estim Creat Clear Calc 20.67, Est GFR (MDRD) Af Amer 30 L, Est GFR (MDRD) Non-Af 25 L, BUN/Creatinine Ratio 14.9, Glucose 154 H, Calcium 7.4 L, Total Bilirubin 0.40, AST 167 H, ALT 43, Alkaline Phosphatase 99, Total Protein 6.0 L, Albumin 2.5 L, Globulin 3.5, Albumin/Globulin Ratio 0.7 L 04/28/20 04:45: Troponin I 0.545 H Current Medications Acetaminophen (Acetaminophen 325 Mg Tablet) 650 mg PO Q6H PRN PRN PRN Reason: Pain Score 1-10/Temp > 100.7 F Aspirin (Aspirin 81 Mg Tab.Chew) 81 mg PO DAILY [facility] Atorvastatin Calcium (Atorvastatin Calcium 20 Mg Tablet) 20 mg PO MoWeFr@2200 [facility] Balsalazide (Balsalazide Disodium 750 Mg Capsule) 4,500 mg PO DAILY [facility] Cholecalciferol (Cholecalciferol (Vit D3) 1,000 Unit (25mcg)) 2,000 unit PO DAILY [facility] Dexamethasone (Dexamethasone 2 Mg Tablet) 6 mg PO DAILY [facility] Enoxaparin Sodium (Enoxaparin 30 Mg/0.3 Ml Syringe) 30 mg SC DAILY [facility] Sodium Chloride () 1,000 mls @ 100 mls/hr IV .Q10H [facility] Stop: 04/28/20 11:04 Last Infusion: 04/28/20 08:56 Dose: Infused Documented by: Piperacillin Sod/Tazobactam (Sod 3.375 gm/ Sodium Chloride) 50 mls @ 12.5 mls/hr IV Q12 [facility] Sodium Chloride () 250 mls @ 15 mls/hr IV .[id number] PRN PRN Reason: Saline Flush Sodium Chloride () 250 mls @ 15 mls/hr IV .[id number] PRN PRN Reason: Additional IVPB Infusion Phenylephrine HCl 10 mg/ (Sodium Chloride) 250 mls @ 15 mls/hr CONT INF .[id number] ROSARIO; Protocol Last Admin: 04/28/20 06:50 Dose: 50 mcg/min, 75 mls/hr Documented by: Melatonin (Melatonin 3 Mg Tablet) 3 mg PO QHS PRN PRN PRN Reason: INSOMNIA Ondansetron HCl (Ondansetron 4 Mg/2 Ml Vial) 4 mg IV Q8H PRN PRN PRN Reason: NAUSEA/VOMITING Sodium Chloride (0.9% Saline Lock 10 Ml Syringe) 10 - 40 ml IV UD PRN PRN Reason: SALINE FLUSH Last Admin: 04/28/20 04:50 Dose: 10 ml Documented by: Throat Lozenges (Benzocaine/Menthol 1 Lozenge) 1 lozenge MUCOUS MEM Q2H PRN PRN PRN Reason: COUGH Timolol Maleate (Timolol 0.5% 5ml Opth.Btl) 1 drop EACH EYE DAILY [facility] Clinical Impression(s) from Imaging Studies Chest X-Ray 04/27/20 19:25 IMPRESSION: Mild left basilar atelectasis. Electronically Signed: Varghese DO Mikael at 19:54 EST Tel [phone], Service support , Chest X-Ray 04/27/20 22:54 IMPRESSION: 1. Right IJ central venous line with the catheter tip in the region of the right atrium. No pneumothorax. 2. No focal infiltrate or CHF. at 2346 Reported and signed by: Francisco Landers MD Electronically Signed: Francisco Landers, at 23:45 EST Tel , Service support , Assessment/Plan Active and Suspected Problems (Last Reviewed 04/28/20 @ 06:[address] Boubacar Sellers MD) COVID-19 (Acute) Hx of CABG (Acute) BRIAN (acute kidney injury) (Acute) Shock (Acute) Hypotension (Acute) RECOMMENDATIONS: 1. Continue blood pressure support with Glen-Synephrine 2. Wean oxygen as tolerated 3. Okay to continue Decadron, but hold on remdesivir and convalescent serum 4. Continue to attempt transfer for CV surgery eval 5. Hold on antibiotics for now IMPRESSIONS: 1. Cardiogenic shock following CABG Patient does not appear to be septic at this time. Patient does not have a significant leukocytosis, but has tested positive for COVID-19 and is recently hospitalized. We will continue with Glen-Synephrine for now. Patient does not appear to be significantly volume overloaded. There has been contact with CV surgery in [place]. Cardiology has been consulted. Troponins are not suggestive of acute myocardial infarction. Defer to cardiology on work-up 2. Acute hypoxic respiratory insufficiency secondary to COVID-19 Patient requiring minimal nasal cannula oxygen at this time. Patient is 10 days postoperative and has developed cough, loss of taste and smell. High clinical suspicion for true antigen positivity. Continue supplemental oxygen as indicated. Patient is receiving Decadron, but treatment with other measures such as Remdesivir have some contraindications. Would hold on convalescent serum as patient may have acute worsening and is at risk for dehiscence and other complications given recent surgery. 3. Acute kidney injury secondary to problem #1 Baseline creatinine appears to be approximately 0.9 prior to surgery. Surgical records are not available for review at this time. Patient does have a significantly elevated creatinine. Doubt patient would be a good candidate for remdesivir given renal clearance requirements. Will discuss with infectious disease. No signs or symptoms of postobstructive pathology. Will support blood pressure for renal perfusion 4. Right elliott wound/advanced age/obesity Complicates care, management, recovery and prognosis. Wound care consulted for right elliott wound. TIME: 34 minutes critical care time spent addressing patient's cardiogenic shock, acute hypoxic respiratory insufficiency, acute kidney injury, review of all data and collaboration with care team (8:30 AM to 10:30 AM) [id number]: [id number] Critical care first hour
[2020-04-28] MEDS: BENZOCAINE/MENTHOL 1 LOZENGE MUCOUS MEM (11:10)
[2020-04-28] MEDS: dexAMETHasone 2 MG TABLET 6 MG PO (11:10)
[2020-04-28] MEDS: Aspirin 81 MG TAB.CHEW PO (11:10)
[2020-04-28] MEDS: Timolol 0.5% 5ML OPTH.BTL 1 DRP EACH EYE (11:11)
[2020-04-28] MEDS: Enoxaparin 30 MG/0.3 ML Syringe SC (11:11)
--- NOTE | 2020-04-28 11:43 | PCM.CONS.C ---
Problem List (1) Hypotension Status: Acute Reason for Consult Date of Consultation: 04/28/20 Reason for Consultation: Hypotension after bypass surgery History of Present Illness: The patient is a 85 year old M was feeling very weak and short of breath yesterday. He came home from [facility] after 3 grafts bypass. In the emergency room patient was found to have hypotension and renal failure. He denies any chest pain. Cardiac history dates back to 2006 at that time he had his first stent put in the right coronary artery. 2017 patient had another stent put in in the right coronary artery. He then developed angina in April of this year. Repeat cardiac catheterization showed occluded mid right coronary artery stent. Was also disease of the left anterior descending and left circumflex. He was sent to [facility] for CABG. Unfortunately he contracted COVID-19 which was confirmed on admission here. Echocardiogram done early part of this year showed ejection fraction of 65%. There was normal renal function. He is known to have hypertension, diabetes and hyperlipidemia. He had a pacemaker put in 2006 and battery replaced in 2016 for bradycardia. [] Past Medical History Allergies/Adverse Reactions: Allergies beta blockers Adverse Reaction (Uncoded 04/27/20 18:15) confusion PARTICULAR ONES Home Medications: Ambulatory Orders Medication Instructions Recorded Aspirin [Aspirin, Baby] 81 mg PO DAILY@0800 06/23/15 Cholecalciferol (VIT D3) [Vitamin 2,000 unit PO DAILY 06/23/15 D] Timolol 0.5% [Timoptic] 1 drp EACH EYE DAILY 06/23/15 balsalazide 750 mg capsule 6 cap PO QDAY cap 05/25/18 liraglutide 0.6 mg/0.1 mL (18 mg/3 1.2 mg SC DAILY ml 05/17/19 mL) subcutaneous pen injector atenolol 50 mg tablet 50 mg PO DAILY #90 tab 10/27/19 enalapril maleate 10 mg tablet 10 mg PO DAILY #90 tab 10/27/19 nitroglycerin 0.4 mg sublingual 0.4 mg SUBLINGUAL Q5-15M PRN #25 03/28/20 tablet tab dapagliflozin 10 mg tablet 10 mg PO DAILY 04/06/20 Atorvastatin Calcium [Lipitor] 20 mg PO MOWEFR 04/27/20 Glyburide/Metformin HCl 4 ea PO DAILY 04/27/20 [Glyburide-Metformin 5-500 mg] Past Medical History (Chronic Problems): Chronic Problems (Last Reviewed 04/28/20 @ 06:[address] Boubacar Sellers MD) Presence of permanent cardiac pacemaker (Chronic ~2006) Presence of stent in coronary artery (Chronic ~06/2006) PTCA/BMS of RCA @ [facility] 06/2006 Type 2 diabetes mellitus (Chronic) Mixed hyperlipidemia (Chronic) Essential hypertension (Chronic) Atherosclerotic heart disease of [place] coronary artery without angina pectoris (Chronic) PTCA/BMS of RCA @ [facility] 06/2006 Atrioventricular dissociation (Chronic) Paroxysmal supraventricular tachycardia (Chronic) Bradycardia, sinus (Chronic) - *Family History Maternal Family History: Family History (Last Reviewed 04/28/20 @ 00:[address] Boubacar Sellers MD) Father CAD (coronary artery disease) Myocardial infarction, Onset Age: 75 Mother Cancer Sister Hypertension Smoking Status: Former smoker Review of Systems - Review of Systems General: Reports: Weakness Cardiovascular: Reports: Shortness of Breath. Denies: Chest Discomfort, Chest Tightness Respiratory: Reports: Shortness of Breath. Denies: Cough, Sputum Production, Hemoptysis Gastrointestinal: Denies: Hematemesis, Hematochezia, Melena Genitourinary: Denies: Dysuria, Hematuria Neurological: Denies: Dizziness Objective: Vital Signs Temp Pulse Resp BP Pulse Ox 97.4 F L 80 24 H 135/69 H 97 04/28/20 01:04 04/28/20 10:00 04/28/20 10:00 04/28/20 10:00 04/28/20 10:00 Oxygen Flow Rate (L/min) 2 Oxygen Delivery Method Nasal Cannula Weight: 228 lb 6.382 oz Body Mass Index (BMI) 34.7 Intake and Output for Last 24 Hours 04/26/20 04/27/20 04/28/20 23:59 23:59 23:59 Intake Total 3055.25 / 3055.25 1548.33 / 1548.33 Output Total 360 / 360 Balance 3055.25 / 3055.25 1188.33 / 1188.33 General: Awake, Alert, Oriented x 3, Cooperative, No Acute Distress Neck: Supple Lungs: Clear to auscultation Cardiovascular: Regular Rhythm, No Murmurs Abdomen: Bowel Sounds Present, Soft, Non Tender, No HSM, No Organomegaly Extremities: Bilateral Edema +1 Neurological: No Focal Motor or Sensory Deficit 04/27/20 18:45: WBC 4.7, RBC 3.37 L, Hgb 9.7 L, Hct 32.8 L, MCV 97.3 H, MCH 28.8, MCHC 29.6 L, Plt Count 240, MPV 10.9, Immature Gran % (Auto) 1.500 H, Neut % (Auto) 69.9, Lymph % (Auto) 18.9 L, Perry % (Auto) 9.1, Eos % (Auto) 0.2, Baso % (Auto) 0.4, Absolute Neuts (auto) 3.3, Nucleated RBC % 0.8 04/27/20 18:45: PT Cancelled, INR Cancelled, APTT Cancelled 04/27/20 18:45: Sodium Cancelled, Potassium Cancelled, Chloride Cancelled, Carbon Dioxide Cancelled, Anion Gap Cancelled, BUN Cancelled, Creatinine Cancelled, Est GFR (MDRD) Af Amer Cancelled, Est GFR (MDRD) Non-Af Cancelled, BUN/Creatinine Ratio Cancelled, Glucose Cancelled, Calcium Cancelled, Total Bilirubin Cancelled, Troponin I Cancelled 04/27/20 18:45: Lactic Acid 4.6 H* 04/27/20 20:25: Sodium 141, Potassium 4.3, Chloride 107, Carbon Dioxide 23.0, Anion Gap 11, BUN 36 H, Creatinine 2.67 H, Est GFR (MDRD) Af Amer 30 L, Est GFR (MDRD) Non-Af 24 L, BUN/Creatinine Ratio 13.5, Glucose 119 H, Calcium 7.4 L, Total Bilirubin 0.30, Troponin I 0.697 H* 04/27/20 20:25: PT 15.4 H, INR 1.3, APTT 42.9 H 04/27/20 23:15: Lactic Acid 2.0 04/28/20 01:00: Troponin I 0.694 H* 04/28/20 04:45: WBC 5.0, RBC 3.20 L, Hgb 9.4 L, Hct 31.1 L, MCV 97.2 H, MCH 29.4, MCHC 30.2 L, Plt Count 237, MPV 10.6, Immature Gran % (Auto) 1.600 H, Neut % (Auto) 86.7 H, Lymph % (Auto) 9.1 L, Perry % (Auto) 2.2, Eos % (Auto) 0.2, Baso % (Auto) 0.2, Absolute Neuts (auto) 4.4, Nucleated RBC % 0.4 04/28/20 04:45: Sodium 139, Potassium 4.6, Chloride 109 H, Carbon Dioxide 22.0, Anion Gap 8, BUN 39 H, Creatinine 2.62 H, Est GFR (MDRD) Af Amer 30 L, Est GFR (MDRD) Non-Af 25 L, BUN/Creatinine Ratio 14.9, Glucose 154 H, Calcium 7.4 L, Total Bilirubin 0.40 04/28/20 04:45: Troponin I 0.545 H Rhythm: EKG: ECHO: Stress Test: Cardiac Cath: PCI: CT Surgery: Holter monitor: EPS: PPM: CXR: Chest CT Scan: Assessment/Plan #1 postop hypotension after CABG 1 week ago. Differential diagnosis: Closure of the graft, localized pericardial effusion with cardiac tamponade, infection. I would recommend echocardiogram to rule out pericardial effusion, wall motion abnormality and to reassess ejection fraction #2 renal failure: Most likely due to hypotension or cardiorenal syndrome. I will switch Glen-Synephrine to IV dopamine for maintaining her blood pressure and for renal perfusion.
--- NOTE | 2020-04-28 14:19 | PCM.HP.ID ---
Problem List (1) COVID-19 Status: Acute Reason for Consult: blane Consulted by: Dr. Zuniga History of Present Illness: The patient is a 85 year old M with CABG at [facility] on 04/17, son drove in from [place], has been taking care of him, has been asymptomatic. Pt reports 1-2 days of weakness, fatigue, loss of taste/smell, and a lot of cough, minimal sputum. No fever, no n/v/d. Chest incision has healed fine, no redness or drainage. No aches. Came to ED, admitted to icu with (+) covid Ag, started on pressors, zosyn, dex. Feeling a little better today. Full ROS performed and neg except as noted above. - Medical History Past Medical History (Chronic Problems): Chronic Problems (Last Reviewed 04/28/20 @ 06:[address] 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) PTCA/BMS of RCA @ [facility] 06/2006 Atrioventricular dissociation (Chronic) Paroxysmal supraventricular tachycardia (Chronic) Bradycardia, sinus (Chronic) Allergies/Adverse Reactions: Allergies beta blockers Adverse Reaction (Uncoded 04/27/20 18:15) confusion PARTICULAR ONES Home Medications: Ambulatory Orders Medication Instructions Recorded Aspirin [Aspirin, Baby] 81 mg PO DAILY@0800 06/23/15 Cholecalciferol (VIT D3) [Vitamin 2,000 unit PO DAILY 06/23/15 D] Timolol 0.5% [Timoptic] 1 drp EACH EYE DAILY 06/23/15 balsalazide 750 mg capsule 6 cap PO QDAY cap 05/25/18 liraglutide 0.6 mg/0.1 mL (18 mg/3 1.2 mg SC DAILY ml 05/17/19 mL) subcutaneous pen injector atenolol 50 mg tablet 50 mg PO DAILY #90 tab 10/27/19 enalapril maleate 10 mg tablet 10 mg PO DAILY #90 tab 10/27/19 nitroglycerin 0.4 mg sublingual 0.4 mg SUBLINGUAL Q5-15M PRN #25 03/28/20 tablet tab dapagliflozin 10 mg tablet 10 mg PO DAILY 04/06/20 Atorvastatin Calcium [Lipitor] 20 mg PO MOWEFR 04/27/20 Glyburide/Metformin HCl 4 ea PO DAILY 04/27/20 [Glyburide-Metformin 5-500 mg] - Social History SMOKING STATUS:: Former smoker Vital Signs Temp Pulse Resp BP Pulse Ox 97.8 F 80 22 H 139/73 H 97 04/28/20 12:30 04/28/20 12:30 04/28/20 12:30 04/28/20 12:30 04/28/20 12:30 Oxygen Flow Rate (L/min) 2 Oxygen Delivery Method Nasal Cannula Weight: 103.6 kg Body Mass Index (BMI) 34.7 Microbiology Past 72 Hours 04/28/20 04:45 Legionella Antigen - Final Urine, Clean Catch Streptococcus pneumoniae Antigen (M - Final 04/27/20 19:15 SARS-CoV-2 Antigen (Rapid) - Final Mucosa - Nose SARS-CoV-2 (COVID 19) Laboratory Tests Past 24 Hrs 04/27/20 04/27/20 04/27/20 18:45 18:45 18:45 WBC 4.7 RBC 3.37 L Hgb 9.7 L Hct 32.8 L MCV 97.3 H MCH 28.8 MCHC 29.6 L RDW Std Deviation 49.9 H RDW Coeff of Per 14.1 Plt Count 240 MPV 10.9 Immature Gran % (Auto) 1.500 H Neut % (Auto) 69.9 Lymph % (Auto) 18.9 L Woodward % (Auto) 9.1 Eos % (Auto) 0.2 Baso % (Auto) 0.4 Absolute Neuts (auto) 3.3 Absolute Lymphs (auto) 0.89 Nucleated RBC % 0.8 Differential Comment Platelet Estimate PT Cancelled INR Cancelled APTT Cancelled Sodium Cancelled Potassium Cancelled Chloride Cancelled Carbon Dioxide Cancelled Anion Gap Cancelled BUN Cancelled Creatinine Cancelled Estim Creat Clear Calc Cancelled Est GFR (MDRD) Af Amer Cancelled Est GFR (MDRD) Non-Af Cancelled BUN/Creatinine Ratio Cancelled Glucose Cancelled Lactic Acid Calcium Cancelled Total Bilirubin Cancelled AST Cancelled ALT Cancelled Alkaline Phosphatase Cancelled Troponin I Cancelled Total Protein Cancelled Albumin Cancelled Globulin Cancelled Albumin/Globulin Ratio Cancelled Procalcitonin MRSA (PCR) 04/27/20 04/27/20 04/27/20 18:45 20:25 20:25 WBC RBC Hgb Hct MCV MCH MCHC RDW Std Deviation RDW Coeff of Per Plt Count MPV Immature Gran % (Auto) Neut % (Auto) Lymph % (Auto) Woodward % (Auto) Eos % (Auto) Baso % (Auto) Absolute Neuts (auto) Absolute Lymphs (auto) Nucleated RBC % Differential Comment Platelet Estimate PT 15.4 H INR 1.3 APTT 42.9 H Sodium 141 Potassium 4.3 Chloride 107 Carbon Dioxide 23.0 Anion Gap 11 BUN 36 H Creatinine 2.67 H Estim Creat Clear Calc 20.28 Est GFR (MDRD) Af Amer 30 L Est GFR (MDRD) Non-Af 24 L BUN/Creatinine Ratio 13.5 Glucose 119 H Lactic Acid 4.6 H* Calcium 7.4 L Total Bilirubin 0.30 AST 138 H ALT 36 Alkaline Phosphatase 95 Troponin I 0.697 H* Total Protein 5.8 L Albumin 2.5 L Globulin 3.3 Albumin/Globulin Ratio 0.8 L Procalcitonin MRSA (PCR) 04/27/20 04/28/20 04/28/20 23:15 01:00 01:00 WBC RBC Hgb Hct MCV MCH MCHC RDW Std Deviation RDW Coeff of Per Plt Count MPV Immature Gran % (Auto) Neut % (Auto) Lymph % (Auto) Woodward % (Auto) Eos % (Auto) Baso % (Auto) Absolute Neuts (auto) Absolute Lymphs (auto) Nucleated RBC % Differential Comment Platelet Estimate PT INR APTT Sodium Potassium Chloride Carbon Dioxide Anion Gap BUN Creatinine Estim Creat Clear Calc Est GFR (MDRD) Af Amer Est GFR (MDRD) Non-Af BUN/Creatinine Ratio Glucose Lactic Acid 2.0 Calcium Total Bilirubin AST ALT Alkaline Phosphatase Troponin I Total Protein Albumin Globulin Albumin/Globulin Ratio Procalcitonin 0.20 H MRSA (PCR) Negative 04/28/20 04/28/20 04/28/20 01:00 04:45 04:45 WBC 5.0 RBC 3.20 L Hgb 9.4 L Hct 31.1 L MCV 97.2 H MCH 29.4 MCHC 30.2 L RDW Std Deviation 49.7 H RDW Coeff of Per 14.1 Plt Count 237 MPV 10.6 Immature Gran % (Auto) 1.600 H Neut % (Auto) 86.7 H Lymph % (Auto) 9.1 L Woodward % (Auto) 2.2 Eos % (Auto) 0.2 Baso % (Auto) 0.2 Absolute Neuts (auto) 4.4 Absolute Lymphs (auto) 0.46 L Nucleated RBC % 0.4 Differential Comment SCANNED Platelet Estimate ADEQUATE PT INR APTT Sodium 139 Potassium 4.6 Chloride 109 H Carbon Dioxide 22.0 Anion Gap 8 BUN 39 H Creatinine 2.62 H Estim Creat Clear Calc 20.67 Est GFR (MDRD) Af Amer 30 L Est GFR (MDRD) Non-Af 25 L BUN/Creatinine Ratio 14.9 Glucose 154 H Lactic Acid Calcium 7.4 L Total Bilirubin 0.40 AST 167 H ALT 43 Alkaline Phosphatase 99 Troponin I 0.694 H* Total Protein 6.0 L Albumin 2.5 L Globulin 3.5 Albumin/Globulin Ratio 0.7 L Procalcitonin MRSA (PCR) 04/28/20 04:45 WBC RBC Hgb Hct MCV MCH MCHC RDW Std Deviation RDW Coeff of Per Plt Count MPV Immature Gran % (Auto) Neut % (Auto) Lymph % (Auto) Woodward % (Auto) Eos % (Auto) Baso % (Auto) Absolute Neuts (auto) Absolute Lymphs (auto) Nucleated RBC % Differential Comment Platelet Estimate PT INR APTT Sodium Potassium Chloride Carbon Dioxide Anion Gap BUN Creatinine Estim Creat Clear Calc Est GFR (MDRD) Af Amer Est GFR (MDRD) Non-Af BUN/Creatinine Ratio Glucose Lactic Acid Calcium Total Bilirubin AST ALT Alkaline Phosphatase Troponin I 0.545 H Total Protein Albumin Globulin Albumin/Globulin Ratio Procalcitonin MRSA (PCR) - Other Studies Radiology: [] reviewed Other Studies: [] Route of nutrition/ use of supplements: [] Nutritional Intake: [] IV Site: [] Felton Catheter: [] - Physical Exam General: Alert, Oriented x3, Cooperative HEENT: Atraumatic, PERRLA, EOMI Neck: Supple, No Nodes Lungs: Diminished Cardiovascular: Regular rate, Regular Rhythm Abdomen: Soft, Non Tender, Non-Distended Extremities: No edema Skin: No rashes, Incision - sternum healing well IV Site: Central Line, without redness Musculoskeletal: No Tenderness to Palpation of Joints or Extremities Neurological: Cranial nerves II-XII grossly intact - Assessment/Plan Antibiotics: [] Assessment/Plan: [] Active and Suspected Problems (Last Reviewed 04/28/20 @ 06:[address] Boubacar Sellers MD) COVID-19 (Acute) Hx of CABG (Acute) BRIAN (acute kidney injury) (Acute) Shock (Acute) Hypotension (Acute) covid with hypoxia, hypotension, BRIAN - recent CABG 04/17/20 at [facility]. Sx started . BP improved, now off pressors. Son is getting tested and will quarantine. Uag neg. PCT 0.2. No fever here. - With BRIAN, hypotension, and recent CABG, concern for possible effusion/abscess. If TTE cannot be done today, recommend noncontrast CT chest. Ok to stop zosyn if cxs remain neg and either echo or CT are ok. If he worsens, would add vanc for empiric MRSA coverage. - for covid, not a candidate for remdesivir due to BRIAN. Cont dex. Reviewed EUA and risks/benefits of convalescent plasma, he consents to treatment. Will follow, thank you, d/w Dr. Brown.
--- NOTE | 2020-04-28 15:11 | CASEMGMT ---
JU NELSON NOTE: Insurance review for hospitals In-network with [employer] MCR PPO Insurance is as follows: [facility], [place], [facility], [facility], [facility], [facility], [facility] ([facility]), and . Laurie DALEYN JU CM
--- NOTE | 2020-04-28 15:14 | CASEMGMT ---
RN CM NOTE: Anticipate pt to be transferred to tertiary hosp. RN CM initial assessment deferred at this time. Laurie DALEYN RN CM
--- NOTE | 2020-04-28 16:27 | CT_ITS ---
STUDY: CT CHEST WITHOUT CONTRAST REASON FOR EXAM: Male, 85 years old. SEPTIC SHOCK,? LUNG ABSCESS,PT IS POST-OP CABG X 10 DAYS,+ COVID -- HX:CHF RADIATION DOSAGE (If Supplied By Facility): CTDIvol = ( 19.84 ) mGy, DLP = ( 887.42 ) mGycm TECHNIQUE: Transaxial imaging was performed without the administration of intravenous contrast material. Individualized dose optimization techniques were used for this CT. COMPARISON: None. FINDINGS: Bilateral pleural effusions with basilar consolidation/atelectasis, left more than right. There are patchy interstitial densities / infiltrates bilaterally. Posterior pericardial thickening. There is a small possible fluid collection in the anterior mediastinum measuring 5 x 2.2 x 3 cm. Normal hilar regions. Normal unenhanced pulmonary arteries. Calcified aorta arch and descending thoracic aorta. Degenerative vertebral changes. Cholelithiasis. CT/Chest without Contrast IMPRESSION: Bilateral pleural effusions with basilar consolidation/atelectasis, left more than right. There are patchy interstitial densities / infiltrates bilaterally. Pericardial thickening. Small anterior mediastinal collection. Cholelithiasis. Electronically Signed: Varghese Youssef DO at 21:24 EST Tel [phone], Service support ,
[2020-04-28] MEDS: Insulin Lispro 100 UNIT/ML INSULN.PEN SC ×2 (17:23→20:50)
[2020-04-28] MEDS: Ipratropium/Albuterol Sulfate 3 ML AMPUL.NEB INHALATION (19:04)
[2020-04-28] MEDS: Atorvastatin Calcium 20 MG Tablet PO (20:50)
[2020-04-28 21:06] LABS: Bedside Glucose 303 mg/dL (70-110)
--- NOTE | 2020-04-28 21:07 | NURSING ---
To and from CT via W/C on 2LNC O2 and teletypesetter monitor. Pt transferred under own power with standby assist for cords. Gait steady and strong.
[2020-04-28 23:36] LABS: Bedside Glucose 261 mg/dL (70-110)
[2020-04-29] VITALS (19 sets, daily range): BP systolic 98–137; BP diastolic 37–84; PULSE 80–81; RESP 15–25; TEMP 36.3–36.6; O2SAT 84–100
[2020-04-29] MEDS: BENZOCAINE/MENTHOL 1 LOZENGE MUCOUS MEM (01:36)
[2020-04-29 02:54] LABS: Bacteria 0 SEEN /hpf (None Seen); Mucous, Urine 0 SEEN /hpf (<or=2+); Red Blood Cells-Urine 0 SEEN /hpf (0-5); Squamous Epithelial Cells - UA 0 SEEN /hpf (0-5); White Blood Cells 0 SEEN /hpf (0-5)
[2020-04-29 02:59] LABS: Color, Urine Yellow (Yellow); Glucose, Dipstick 1000 mg/dl (Normal); Ketone-Dipstick Negative (Negative); Leukocyte Esterase-Dipstick Negative /ul (Negative); Nitrite-Dipstick Negative (Negative); Occult Blood-Urine Negative /ul (Negative); Protein-Dipstick 15 mg/dl (Negative); Urine Bilirubin Dipstick Negative (Negative); Urine Clarity Sl. Cloudy (Clear); Urine Urobilinogen Normal (Normal)
[2020-04-29 03:11] LABS: Urine Sodium 87 mmol/L (Not Establ.)
[2020-04-29 05:00] LABS: Absolute Lymphocyte Count 0.28 X10^3/uL (0.83-4.51); Absolute Neutrophil Count 3.2 X10^3/uL (2.0-7.7); Hematocrit 29.6 % (40-54); Hemoglobin 8.8 g/dL (13.0-16.5); Lymphocyte # 0.28 X10^3/ul (4.0); Lymphocyte % 7.5 % (19-41); Mean Corp Hgb Conc 29.7 g/dL (32-36); Mean Corpuscular Hgb 28.6 pg (27.0-32.0); Mean Corpuscular Volume 96.1 fL (80-94); Mean Platelet Vol. 10.7 fl (6.2-12.0); Monocyte# 0.18 X10^3/uL; Monocyte% 4.8 % (0-10); NRBC Flagged by Analyzer 0.8 % (0-5); Neutrophil # 3.21 X10^3/uL (2.7-7.7); Neutrophil % 86.4 % (47-70); POSITIVE DIFFERENTIAL YES; Platelet Count 185 K/mm3 (150-450); RBC Distribution Width SD 48.8 fl (35.1-43.9); Red Blood Count 3.08 M/mm3 (4.6-6.2); White Blood Count 3.7 K/mm3 (4.4-11.0)
[2020-04-29 05:01] LABS: Differential Indicated SCAN CRITERIA MET
[2020-04-29 05:21] LABS: ALB/GLOB Ratio 0.8 RATIO (0.9-2.4); AST(SGOT) 187 U/L (15-37); Alanine Aminotransfer ALT/SGPT 60 U/L (16-61); Albumin, Serum 2.5 g/dL (3.2-5.0); Alkaline Phosphatase 91 U/L (45-117); Anion Gap 8 (5-15); BUN 44 mg/dL (7-18); BUN/Creat Ratio 26.2 RATIO (10-20); Calcium,Total 7.4 mg/dL (8.5-10.1); Chloride 109 mmol/L (98-107); Creatinine, Serum 1.68 mg/dL (0.70-1.30); EST Glomerular Filtration Rate 42 mL/min (>60); Est Glom Filt Rate - Afr Amer 50 mL/min (>60); Estimated Creatinine Clearance 32.23 ml/min; Globulin 3.3 g/dL (2.2-4.2); Glucose 248 mg/dL (74-106); Potassium 4.3 mmol/L (3.5-5.1); Protein, Total 5.8 g/dL (6.4-8.2); Sodium Level 140 mmol/L (136-145)
[2020-04-29 05:36] LABS: Differential Comment SCANNED
--- NOTE | 2020-04-29 06:32 | PN_ITS ---
Patient Problems: Active and Suspected Problems (Last Reviewed 04/28/20 @ 06:[address] Boubacar Sellers MD) COVID-19 (Acute) Hx of CABG (Acute) BRIAN (acute kidney injury) (Acute) Shock (Acute) Hypotension (Acute) Vitals/I&O's: Vital Signs Temp Pulse Resp BP Pulse Ox 97.6 F L 80 19 H 118/66 95 04/29/20 00:00 04/29/20 03:00 04/29/20 02:00 04/29/20 02:00 04/29/20 02:00 Oxygen Flow Rate (L/min) 2 Oxygen Delivery Method Nasal Cannula Weight: 104.7 kg Body Mass Index (BMI) 34.7 Intake and Output for Last 24 Hours 04/27/20 04/28/20 04/29/20 23:59 23:59 23:59 Intake Total 3055.25 / 3055.25 1907.08 / 2207.08 770 / 770 Output Total 1080 / 1080 500 / 500 Balance 3055.25 / 3055.25 827.08 / 1127.08 270 / 270 Microbiology Past 72 Hours 04/28/20 04:45 Urine, Clean Catch Legionella Antigen - Final 04/28/20 04:45 Urine, Clean Catch Streptococcus pneumoniae Antigen (M - Final 04/27/20 19:15 Mucosa - Nose SARS-CoV-2 Antigen (Rapid) - Final SARS-CoV-2 (COVID 19) Laboratory Results 04/27/20 18:55: Urine Color Yellow, Urine Clarity Sl. Cloudy, Urine pH 5.0, Ur Specific [place] 1.020, Urine Protein 15 H, Urine Glucose (UA) 1000 H, Urine Ketones Negative, Urine Occult Blood Negative, Urine Nitrite Negative, Urine Bilirubin Negative, Urine Urobilinogen Normal, Ur Leukocyte Esterase Negative, Urine RBC 0 SEEN, Urine WBC 0 SEEN, Ur Squamous Epith Cells 0 SEEN, Urine Bacteria 0 SEEN, Urine Mucus 0 SEEN 04/28/20 01:00: Procalcitonin 0.20 H 04/28/20 14:20: Troponin I 0.369 H 04/28/20 17:16: POC Glucose 261 H 04/28/20 18:55: Ur Random Sodium 87, Urine Creatinine 64.50 04/28/20 20:46: POC Glucose 303 H 04/29/20 04:24: WBC 3.7 L, RBC 3.08 L, Hgb 8.8 L, Hct 29.6 L, MCV 96.1 H, MCH 28.6, MCHC 29.7 L, RDW Std Deviation 48.8 H, RDW Coeff of Pre 14.0, Plt Count 185, MPV 10.7, Immature Gran % (Auto) 1.300 H, Neut % (Auto) 86.4 H, Lymph % (Auto) 7.5 L, Harlan % (Auto) 4.8, Eos % (Auto) 0.0, Baso % (Auto) 0.0, Absolute Neuts (auto) 3.2, Absolute Lymphs (auto) 0.28 L, Nucleated RBC % 0.8, Differential Comment SCANNED, Diff Path Review September04/29/20 04:24: Sodium 140, Potassium 4.3, Chloride 109 H, Carbon Dioxide 23.0, Anion Gap 8, BUN 44 H, Creatinine 1.68 H, Estim Creat Clear Calc 32.23, Est GFR (MDRD) Af Amer 50 L, Est GFR (MDRD) Non-Af 42 L, BUN/Creatinine Ratio 26.2 H, Glucose 248 H, Calcium 7.4 L, Total Bilirubin 0.40, AST 187 H, ALT 60, Alkaline Phosphatase 91, Total Protein 5.8 L, Albumin 2.5 L, Globulin 3.3, Albumin/Globulin Ratio 0.8 L Current Medications Acetaminophen (Acetaminophen 325 Mg Tablet) 650 mg PO Q6H PRN PRN PRN Reason: Pain Score 1-10/Temp > 100.7 F Albuterol/Ipratropium (Ipratropium/Albuterol Sulfate 3 Ml Ampul.Neb) 3 ml INHALATION Q4HWA.RT [facility] Last Admin: 04/28/20 19:04 Dose: 3 ml Documented by: Aspirin (Aspirin 81 Mg Tab.Chew) 81 mg PO DAILY [facility] Last Admin: 04/28/20 11:10 Dose: 81 mg Documented by: Atorvastatin Calcium (Atorvastatin Calcium 20 Mg Tablet) 20 mg PO [id number] [facility] Last Admin: 04/28/20 20:50 Dose: 20 mg Documented by: Balsalazide (Balsalazide Disodium 750 Mg Capsule) 4,500 mg PO DAILY [facility] Last Admin: 04/28/20 11:10 Dose: Not Given Documented by: Cholecalciferol (Cholecalciferol (Vit D3) 1,000 Unit (25mcg)) 2,000 unit PO DAILY [facility] Last Admin: 04/28/20 11:11 Dose: 2,000 unit Documented by: Dexamethasone (Dexamethasone 2 Mg Tablet) 6 mg PO DAILY [facility] Stop: 05/06/20 10:01 Last Admin: 04/28/20 11:10 Dose: 6 mg Documented by: Dextrose (Dextrose 50%-Water 25 Gm/50 Ml Disp.Syrin) 0 gm IV X1 PRN; Protocol PRN Reason: Hypoglycemia Enoxaparin Sodium (Enoxaparin 30 Mg/0.3 Ml Syringe) 30 mg SC DAILY [facility] Last Admin: 04/28/20 11:11 Dose: 30 mg Documented by: Glucagon (Glucagon 1 Mg/Ml Syringe) 1 mg IM .X1 PRN PRN Reason: Hypoglycemia Piperacillin Sod/Tazobactam (Sod 3.375 gm/ Sodium Chloride) 50 mls @ 12.5 mls/hr IV Q12 [facility] Last Infusion: 04/29/20 01:10 Dose: Infused Documented by: Sodium Chloride () 250 mls @ 15 mls/hr IV .[id number] PRN PRN Reason: Saline Flush Last Infusion: 04/28/20 16:45 Dose: 15 mls/hr Documented by: Sodium Chloride () 250 mls @ 15 mls/hr IV .[id number] PRN PRN Reason: Additional IVPB Infusion Dopamine HCl/Dextrose () 800 mg in 250 mls @ 9.713 mls/hr CONT INF .[id number] [facility]; Protocol Last Admin: 04/28/20 21:23 Dose: Not Given Documented by: Insulin Glargine (Insulin Glargine 100 Units/Ml Pen) 15 units SC BID [facility] Insulin Human Lispro (Insulin Lispro 100 Unit/Ml Insuln.Pen) 0 unit SC ACHS [facility]; Protocol Last Admin: 04/28/20 20:50 Dose: 4 u Documented by: Melatonin (Melatonin 3 Mg Tablet) 3 mg PO QHS PRN PRN PRN Reason: INSOMNIA Ondansetron HCl (Ondansetron 4 Mg/2 Ml Vial) 4 mg IV Q8H PRN PRN PRN Reason: NAUSEA/VOMITING Sodium Chloride (0.9% Saline Lock 10 Ml Syringe) 10 - 40 ml IV UD PRN PRN Reason: SALINE FLUSH Last Admin: 04/28/20 04:50 Dose: 10 ml Documented by: Throat Lozenges (Benzocaine/Menthol 1 Lozenge) 1 lozenge MUCOUS MEM Q2H PRN PRN PRN Reason: COUGH Last Admin: 04/29/20 01:36 Dose: 1 lozenge Documented by: Timolol Maleate (Timolol 0.5% 5ml Opth.Btl) 1 drop EACH EYE DAILY [facility] Last Admin: 04/28/20 11:11 Dose: 1 drop Documented by: STROKE Vital Signs/Narrative: Vital Signs Pulse 04/29/20 03:00 80 Medical Necessity - Tobacco Use Smoking Status: Former smoker Assessment/Plan All Active Problems (Last Reviewed 04/28/20 @ 06:[address] Boubacar Sellers MD) COVID-19 (Acute) Hx of CABG (Acute) BRIAN (acute kidney injury) (Acute) Shock (Acute) Hypotension (Acute)
[2020-04-29] MEDS: Insulin Lispro 100 UNIT/ML INSULN.PEN SC ×2 (06:45→12:07)
--- NOTE | 2020-04-29 07:04 | PN_ITS ---
Subjective: Patient did well overnight. No acute issues were reported. Patient did have a bowel movement and has remained off all pressor agents. Patient with no real complaints this morning, but still requiring 2 L nasal cannula to maintain saturations. Objective: Patient had a CT scan yesterday showing bilateral effusions that are small, left greater than right and pericardial thickening. Echocardiogram showed an EF of 55% without tamponade physiology. General: Alert, Oriented x3, Cooperative, No apparent distress, Well developed, Well nourished, - - Obese. Speaking in full sentences. HEENT: Atraumatic, PERRLA, EOMI, Normocephalic, - - No scleral icterus or injection noted Oral: No Gingival or Mucosal Lesions/ Ulcerations, Dry Mucosa Neck: Supple, No JVD, Negative Carotid Bruits, No Nodes, Trachea Midline Lungs: No rhonchi, No wheeze, No rales, Diminished, - - Symmetric expansion. No dullness to percussion. Cardiovascular: Regular rate, Regular Rhythm, Normal S1, Normal S2, No murmurs, No rub noted, No Gallop, - - Some exudate noted at the inferior aspect of the sternal wound Abdomen: Bowel Sounds Present, Soft, Non Tender, Non-Distended Extremities: No clubbing, No cyanosis, Capillary Refill Less than 3 Seconds, Edema Skin: No rashes, No breakdown Musculoskeletal: No Tenderness to Palpation of Joints or Extremities Lymphatic: No Cervical, Supraclavicular, or Inguinal Adenopathy Neurological: Cranial nerves II-XII grossly intact, Neuro grossly intact, Motor Exam 5/5 strength throughout Psych/Mental Status: Alert and oriented to time, place, person, mood and affect Vital Signs Temp Pulse Resp BP Pulse Ox 36.6 C 80 17 111/61 97 04/29/20 03:00 04/29/20 06:00 04/29/20 06:00 04/29/20 06:00 04/29/20 06:00 Oxygen Flow Rate (L/min) 2 Oxygen Delivery Method Nasal Cannula Weight: 104.7 kg Body Mass Index (BMI) 34.7 Intake and Output for Last 24 Hours 04/27/20 04/28/20 04/29/20 23:59 23:59 23:59 Intake Total 3055.25 / 3055.25 1907.08 / 2207.08 770 / 770 Output Total 1080 / 1080 500 / 500 Balance 3055.25 / 3055.25 827.08 / 1127.08 270 / 270 Labs (Last 48 Hours) 04/27/20 04/27/20 04/27/20 18:45 18:45 18:45 WBC 4.7 RBC 3.37 L Hgb 9.7 L Hct 32.8 L MCV 97.3 H MCH 28.8 MCHC 29.6 L RDW Std Deviation 49.9 H RDW Coeff of Per 14.1 Plt Count 240 MPV 10.9 Immature Gran % (Auto) 1.500 H Neut % (Auto) 69.9 Lymph % (Auto) 18.9 L Howell % (Auto) 9.1 Eos % (Auto) 0.2 Baso % (Auto) 0.4 Absolute Neuts (auto) 3.3 Absolute Lymphs (auto) 0.89 Nucleated RBC % 0.8 Differential Comment Diff Path Review Platelet Estimate PT Cancelled INR Cancelled APTT Cancelled Sodium Cancelled Potassium Cancelled Chloride Cancelled Carbon Dioxide Cancelled Anion Gap Cancelled BUN Cancelled Creatinine Cancelled Estim Creat Clear Calc Cancelled Est GFR (MDRD) Af Amer Cancelled Est GFR (MDRD) Non-Af Cancelled BUN/Creatinine Ratio Cancelled Glucose Cancelled Lactic Acid Calcium Cancelled Total Bilirubin Cancelled AST Cancelled ALT Cancelled Alkaline Phosphatase Cancelled Troponin I Cancelled Total Protein Cancelled Albumin Cancelled Globulin Cancelled Albumin/Globulin Ratio Cancelled Procalcitonin Urine Color Urine Clarity Urine pH Ur Specific [place] Urine Protein Urine Glucose (UA) Urine Ketones Urine Occult Blood Urine Nitrite Urine Bilirubin Urine Urobilinogen Ur Leukocyte Esterase Urine RBC Urine WBC Ur Squamous Epith Cells Urine Bacteria Urine Mucus Ur Random Sodium Urine Creatinine MRSA (PCR) POC Glucose 04/27/20 04/27/20 04/27/20 18:45 18:55 20:25 WBC RBC Hgb Hct MCV MCH MCHC RDW Std Deviation RDW Coeff of Per Plt Count MPV Immature Gran % (Auto) Neut % (Auto) Lymph % (Auto) Howell % (Auto) Eos % (Auto) Baso % (Auto) Absolute Neuts (auto) Absolute Lymphs (auto) Nucleated RBC % Differential Comment Diff Path Review Platelet Estimate PT INR APTT Sodium 141 Potassium 4.3 Chloride 107 Carbon Dioxide 23.0 Anion Gap 11 BUN 36 H Creatinine 2.67 H Estim Creat Clear Calc 20.28 Est GFR (MDRD) Af Amer 30 L Est GFR (MDRD) Non-Af 24 L BUN/Creatinine Ratio 13.5 Glucose 119 H Lactic Acid 4.6 H* Calcium 7.4 L Total Bilirubin 0.30 AST 138 H ALT 36 Alkaline Phosphatase 95 Troponin I 0.697 H* Total Protein 5.8 L Albumin 2.5 L Globulin 3.3 Albumin/Globulin Ratio 0.8 L Procalcitonin Urine Color Yellow Urine Clarity Sl. Cloudy Urine pH 5.0 Ur Specific [place] 1.020 Urine Protein 15 H Urine Glucose (UA) 1000 H Urine Ketones Negative Urine Occult Blood Negative Urine Nitrite Negative Urine Bilirubin Negative Urine Urobilinogen Normal Ur Leukocyte Esterase Negative Urine RBC 0 SEEN Urine WBC 0 SEEN Ur Squamous Epith Cells 0 SEEN Urine Bacteria 0 SEEN Urine Mucus 0 SEEN Ur Random Sodium Urine Creatinine MRSA (PCR) POC Glucose 04/27/20 04/27/20 04/28/20 20:25 23:15 01:00 WBC RBC Hgb Hct MCV MCH MCHC RDW Std Deviation RDW Coeff of Per Plt Count MPV Immature Gran % (Auto) Neut % (Auto) Lymph % (Auto) Howell % (Auto) Eos % (Auto) Baso % (Auto) Absolute Neuts (auto) Absolute Lymphs (auto) Nucleated RBC % Differential Comment Diff Path Review Platelet Estimate PT 15.4 H INR 1.3 APTT 42.9 H Sodium Potassium Chloride Carbon Dioxide Anion Gap BUN Creatinine Estim Creat Clear Calc Est GFR (MDRD) Af Amer Est GFR (MDRD) Non-Af BUN/Creatinine Ratio Glucose Lactic Acid 2.0 Calcium Total Bilirubin AST ALT Alkaline Phosphatase Troponin I Total Protein Albumin Globulin Albumin/Globulin Ratio Procalcitonin 0.20 H Urine Color Urine Clarity Urine pH Ur Specific [place] Urine Protein Urine Glucose (UA) Urine Ketones Urine Occult Blood Urine Nitrite Urine Bilirubin Urine Urobilinogen Ur Leukocyte Esterase Urine RBC Urine WBC Ur Squamous Epith Cells Urine Bacteria Urine Mucus Ur Random Sodium Urine Creatinine MRSA (PCR) POC Glucose 04/28/20 04/28/20 04/28/20 01:00 01:00 04:45 WBC 5.0 RBC 3.20 L Hgb 9.4 L Hct 31.1 L MCV 97.2 H MCH 29.4 MCHC 30.2 L RDW Std Deviation 49.7 H RDW Coeff of Per 14.1 Plt Count 237 MPV 10.6 Immature Gran % (Auto) 1.600 H Neut % (Auto) 86.7 H Lymph % (Auto) 9.1 L Howell % (Auto) 2.2 Eos % (Auto) 0.2 Baso % (Auto) 0.2 Absolute Neuts (auto) 4.4 Absolute Lymphs (auto) 0.46 L Nucleated RBC % 0.4 Differential Comment SCANNED Diff Path Review Platelet Estimate ADEQUATE PT INR APTT Sodium Potassium Chloride Carbon Dioxide Anion Gap BUN Creatinine Estim Creat Clear Calc Est GFR (MDRD) Af Amer Est GFR (MDRD) Non-Af BUN/Creatinine Ratio Glucose Lactic Acid Calcium Total Bilirubin AST ALT Alkaline Phosphatase Troponin I 0.694 H* Total Protein Albumin Globulin Albumin/Globulin Ratio Procalcitonin Urine Color Urine Clarity Urine pH Ur Specific [place] Urine Protein Urine Glucose (UA) Urine Ketones Urine Occult Blood Urine Nitrite Urine Bilirubin Urine Urobilinogen Ur Leukocyte Esterase Urine RBC Urine WBC Ur Squamous Epith Cells Urine Bacteria Urine Mucus Ur Random Sodium Urine Creatinine MRSA (PCR) Negative POC Glucose 04/28/20 04/28/20 04/28/20 04:45 04:45 14:20 WBC RBC Hgb Hct MCV MCH MCHC RDW Std Deviation RDW Coeff of Per Plt Count MPV Immature Gran % (Auto) Neut % (Auto) Lymph % (Auto) Howell % (Auto) Eos % (Auto) Baso % (Auto) Absolute Neuts (auto) Absolute Lymphs (auto) Nucleated RBC % Differential Comment Diff Path Review Platelet Estimate PT INR APTT Sodium 139 Potassium 4.6 Chloride 109 H Carbon Dioxide 22.0 Anion Gap 8 BUN 39 H Creatinine 2.62 H Estim Creat Clear Calc 20.67 Est GFR (MDRD) Af Amer 30 L Est GFR (MDRD) Non-Af 25 L BUN/Creatinine Ratio 14.9 Glucose 154 H Lactic Acid Calcium 7.4 L Total Bilirubin 0.40 AST 167 H ALT 43 Alkaline Phosphatase 99 Troponin I 0.545 H 0.369 H Total Protein 6.0 L Albumin 2.5 L Globulin 3.5 Albumin/Globulin Ratio 0.7 L Procalcitonin Urine Color Urine Clarity Urine pH Ur Specific [place] Urine Protein Urine Glucose (UA) Urine Ketones Urine Occult Blood Urine Nitrite Urine Bilirubin Urine Urobilinogen Ur Leukocyte Esterase Urine RBC Urine WBC Ur Squamous Epith Cells Urine Bacteria Urine Mucus Ur Random Sodium Urine Creatinine MRSA (PCR) POC Glucose 04/28/20 04/28/20 04/28/20 17:16 18:55 20:46 WBC RBC Hgb Hct MCV MCH MCHC RDW Std Deviation RDW Coeff of Per Plt Count MPV Immature Gran % (Auto) Neut % (Auto) Lymph % (Auto) Howell % (Auto) Eos % (Auto) Baso % (Auto) Absolute Neuts (auto) Absolute Lymphs (auto) Nucleated RBC % Differential Comment Diff Path Review Platelet Estimate PT INR APTT Sodium Potassium Chloride Carbon Dioxide Anion Gap BUN Creatinine Estim Creat Clear Calc Est GFR (MDRD) Af Amer Est GFR (MDRD) Non-Af BUN/Creatinine Ratio Glucose Lactic Acid Calcium Total Bilirubin AST ALT Alkaline Phosphatase Troponin I Total Protein Albumin Globulin Albumin/Globulin Ratio Procalcitonin Urine Color Urine Clarity Urine pH Ur Specific [place] Urine Protein Urine Glucose (UA) Urine Ketones Urine Occult Blood Urine Nitrite Urine Bilirubin Urine Urobilinogen Ur Leukocyte Esterase Urine RBC Urine WBC Ur Squamous Epith Cells Urine Bacteria Urine Mucus Ur Random Sodium 87 Urine Creatinine 64.50 MRSA (PCR) POC Glucose 261 H 303 H 04/29/20 04/29/20 04:24 04:24 WBC 3.7 L RBC 3.08 L Hgb 8.8 L Hct 29.6 L MCV 96.1 H MCH 28.6 MCHC 29.7 L RDW Std Deviation 48.8 H RDW Coeff of Per 14.0 Plt Count 185 MPV 10.7 Immature Gran % (Auto) 1.300 H Neut % (Auto) 86.4 H Lymph % (Auto) 7.5 L Howell % (Auto) 4.8 Eos % (Auto) 0.0 Baso % (Auto) 0.0 Absolute Neuts (auto) 3.2 Absolute Lymphs (auto) 0.28 L Nucleated RBC % 0.8 Differential Comment SCANNED Diff Path Review May foll Platelet Estimate PT INR APTT Sodium 140 Potassium 4.3 Chloride 109 H Carbon Dioxide 23.0 Anion Gap 8 BUN 44 H Creatinine 1.68 H Estim Creat Clear Calc 32.23 Est GFR (MDRD) Af Amer 50 L Est GFR (MDRD) Non-Af 42 L BUN/Creatinine Ratio 26.2 H Glucose 248 H Lactic Acid Calcium 7.4 L Total Bilirubin 0.40 AST 187 H ALT 60 Alkaline Phosphatase 91 Troponin I Total Protein 5.8 L Albumin 2.5 L Globulin 3.3 Albumin/Globulin Ratio 0.8 L Procalcitonin Urine Color Urine Clarity Urine pH Ur Specific [place] Urine Protein Urine Glucose (UA) Urine Ketones Urine Occult Blood Urine Nitrite Urine Bilirubin Urine Urobilinogen Ur Leukocyte Esterase Urine RBC Urine WBC Ur Squamous Epith Cells Urine Bacteria Urine Mucus Ur Random Sodium Urine Creatinine MRSA (PCR) POC Glucose Microbiology 04/28/20 04:45 Urine, Clean Catch Legionella Antigen - Final 04/28/20 04:45 Urine, Clean Catch Streptococcus pneumoniae Antigen (M - Final 04/27/20 19:15 Mucosa - Nose SARS-CoV-2 Antigen (Rapid) - Final SARS-CoV-2 (COVID 19) Clinical Impression(s) from Imaging Studies Chest CT 04/28/20 16:27 IMPRESSION: Bilateral pleural effusions with basilar consolidation/atelectasis, left more than right. There are patchy interstitial densities / infiltrates bilaterally. Pericardial thickening. Small anterior mediastinal collection. Cholelithiasis. Electronically Signed: Varghese Youssef DO at 21:24 EST Tel [phone], Service support , Medical Necessity - Tobacco Use Smoking Status: Former smoker Assessment/Plan All Active Problems (Last Reviewed 04/28/20 @ 06:[address] Boubacar Sellers MD) COVID-19 (Acute) Hx of CABG (Acute) BRIAN (acute kidney injury) (Acute) Shock (Acute) Hypotension (Acute) RECOMMENDATIONS: 1. Initiate Lantus therapy 2. Wean oxygen as tolerated 3. Okay to continue Decadron, but hold on remdesivir 4. Continue to attempt transfer for CV surgery eval 5. Convalescent serum when available IMPRESSIONS: 1. Cardiogenic shock following CABG Patient does not appear to be septic at this time. Patient does not have a significant leukocytosis, but has tested positive for COVID-19 and is recently hospitalized. Patient is no longer requiring pressor agents. Patient does not appear to be significantly volume overloaded. There has been contact with CV surgery in [place]. Cardiology has been consulted. Echocardiogram showed a slightly reduced EF, but no tamponade physiology. 2. Acute hypoxic respiratory insufficiency secondary to COVID-19 Patient requiring minimal nasal cannula oxygen at this time. Patient is 10 days postoperative and has developed cough, loss of taste and smell. High clinical suspicion for true antigen positivity. Continue supplemental oxygen as indicated. Patient is receiving Decadron, but treatment with other measures cervantes ch as Remdesivir have some contraindications. Patient has agreed to convalescent serum, but this has not been initiated yet. Patient is not a candidate for remdesivir given renal dysfunction. Continue to support blood pressure and if renal function improves by Friday, will discuss with infectious disease about possible initiation. 3. Acute kidney injury secondary to problem #1 Improving. Baseline creatinine appears to be approximately 0.9 prior to surgery. Surgical records are not available for review at this time. Patient does have a significantly elevated creatinine. Doubt patient would be a good candidate for remdesivir given renal clearance requirements at this time. No signs or symptoms of postobstructive pathology. Will support blood pressure for renal perfusion 4. Right elliott wound/advanced age/obesity Complicates care, management, recovery and prognosis. Wound care consulted for right elliott wound and inferior sternal wound. Inpatient E&M: [id number] [facility] L3
[2020-04-29] MEDS: dexAMETHasone 2 MG TABLET 6 MG PO (09:02)
[2020-04-29] MEDS: Aspirin 81 MG TAB.CHEW PO (09:02)
[2020-04-29] MEDS: Enoxaparin 30 MG/0.3 ML Syringe SC (09:02)
[2020-04-29] MEDS: Timolol 0.5% 5ML OPTH.BTL 1 DRP EACH EYE (09:03)
[2020-04-29 09:15] LABS: Bedside Glucose 278 mg/dL (70-110)
--- NOTE | 2020-04-29 11:58 | NURSING ---
report given to Ewa at [facility]
--- NOTE | 2020-04-29 12:24 | DCINST_ITS ---
- Discharge Diagnoses Current Active Problems: Current Active and Chronic Problems (Last Reviewed 04/28/20 @ 06:[address] Boubacar Sellers MD) COVID-19 (Acute) Hx of CABG (Acute) BRIAN (acute kidney injury) (Acute) Shock (Acute) Hypotension (Acute) Presence of permanent cardiac pacemaker (Chronic ~2006) Presence of stent in coronary artery (Chronic ~06/2006) PTCA/BMS of RCA @ [facility] 06/2006 Type 2 diabetes mellitus (Chronic) Mixed hyperlipidemia (Chronic) Essential hypertension (Chronic) Atherosclerotic heart disease of [place] coronary artery without angina pectoris (Chronic) PTCA/BMS of RCA @ [facility] 06/2006 Atrioventricular dissociation (Chronic) Paroxysmal supraventricular tachycardia (Chronic) Bradycardia, sinus (Chronic) Reason(s) for Visit for Discharge Instructions: Shortness of breath You will use the following diet at home:: Cardiac Your food should be the consistency of: Regular Your liquids should be the consistency of: Regular/Thin Discharge Activity: Return to Normal Activity Allergies/Adverse Reactions: Allergies beta blockers Adverse Reaction (Uncoded 04/27/20 18:15) confusion PARTICULAR ONES Medications to take at Discharge Aspirin [Aspirin, Baby] 81 mg PO DAILY@0800 06/23/15 Cholecalciferol (VIT D3) [Vitamin D] 2,000 unit PO DAILY 06/23/15 Timolol 0.5% [Timoptic] 1 drp EACH EYE DAILY 06/23/15 balsalazide 750 mg capsule 6 cap PO QDAY cap 05/25/18 liraglutide 0.6 mg/0.1 mL (18 mg/3 mL) subcutaneous pen injector 1.2 mg SC DAILY ml 05/17/19 atenolol 50 mg tablet 50 mg PO DAILY #90 tab 10/27/19 enalapril maleate 10 mg tablet 10 mg PO DAILY #90 tab 10/27/19 nitroglycerin 0.4 mg sublingual tablet 0.4 mg SUBLINGUAL Q5-15M PRN #25 tab 03/28/20 dapagliflozin 10 mg tablet 10 mg PO DAILY 04/06/20 Atorvastatin Calcium [Lipitor] 20 mg PO MOWEFR 04/27/20 Glyburide/Metformin HCl [Glyburide-Metformin 5-500 mg] 4 ea PO DAILY 04/27/20 Primary Care Physician: Lucho Tucker MD [Primary Care Provider] - Please follow up with your Primary Care Physician in: within 1-2 weeks of discharge Test Results: Test results from this visit will be discussed in further detail at your follow- up appointment, if applicable. Proposed Discharge Date: 04/29/20
--- NOTE | 2020-04-29 12:27 | DS.PCM_ITS ---
Discharge Date and Diagnosis - Problem List Patient Problems: Active and Suspected Problems (Last Reviewed 04/28/20 @ 06:[address] Boubacar Sellers MD) COVID-19 (Acute) Hx of CABG (Acute) BRIAN (acute kidney injury) (Acute) Shock (Acute) Hypotension (Acute) Date of Admission: 04/27/20 Date of Discharge: 04/29/20 - Primary Discharge Diagnosis Acute Problems: Active Problems (Last Reviewed 04/28/20 @ 06:[address] Boubacar Sellers MD) Shock/hypotension, unclear etiology Lactic acidosis Elevated troponin secondary to demand ischemia Acute COVID-19 infection with hypoxia Acute kidney injury, likely prerenal secondary to dehydration versus cardiorenal Acute toxic respiratory sufficient secondary to acute Covid 19 infection - Secondary Discharge Diagnosis Chronic Problems: Chronic Problems (Last Reviewed 04/28/20 @ 06:[address] Boubacar Sellers MD) Presence of permanent cardiac pacemaker (Chronic ~2006) Presence of stent in coronary artery (Chronic ~06/2006) PTCA/BMS of RCA @ [facility] 06/2006 Type 2 diabetes mellitus (Chronic) Mixed hyperlipidemia (Chronic) Essential hypertension (Chronic) Atherosclerotic heart disease of [place] coronary artery without angina pectoris (Chronic) PTCA/BMS of RCA @ [facility] 06/2006 Atrioventricular dissociation (Chronic) Paroxysmal supraventricular tachycardia (Chronic) Bradycardia, sinus (Chronic) Hospital Course and Treatment Imaging Results: Clinical Impression(s) from Imaging Studies Chest X-Ray 04/27/20 19:25 IMPRESSION: Mild left basilar atelectasis. Electronically Signed: Varghese Youssef DO at 19:54 EST Tel [phone], Service support , Chest X-Ray 04/27/20 22:54 IMPRESSION: 1. Right IJ central venous line with the catheter tip in the region of the right atrium. No pneumothorax. 2. No focal infiltrate or CHF. at [id number] Reported and signed by: Francisco Landers MD Electronically Signed: Francisco Landers, at 23:45 EST Tel , Service support , Chest CT 04/28/20 16:27 IMPRESSION: Bilateral pleural effusions with basilar consolidation/atelectasis, left more than right. There are patchy interstitial densities / infiltrates bilaterally. Pericardial thickening. Small anterior mediastinal collection. Cholelithiasis. Electronically Signed: Varghese Youssef DO at 21:24 EST Tel [phone], Service support , Consultations 04/28/20 00:17 Consult: Onc/Wound/behavioral instructor Routine Comment: Reason for Consult:: right elliott wound ID Cardiology Pulmonology Operations: None Procedures: None Summary of Care Provided: The patient is a 85 year old M with PMHx of CAD s/p stents, Hypertension, Type 2DM, s/p pacemaker who had CABG 10 days prior to admission scented to the emergency department with low blood pressure. Patient stated that his prior to admission, he has had low blood pressure with elevated heart rate. He has had a cough with shortness of breath and loss of taste. He denied any fever, sore throat. His initial blood pressure was 89/43 in the emergency department. EG shows ventricular paced rhythm at 80. Patient did receive IV fluids I improve his blood pressure. He did have acute kidney injury with a creatinine of 2.67, his previous baseline was 0.8. His admitting lactic 6. Troponin was 0.67. His COVID-19 test was positive. Bedside transthoracic ultrasound showed no pericardial effusion. Patient was discussed with [facility] cardiothoracic surgeon, Dr. Cintron. He was admitted but transfer line could not get patient an ICU bed. It was recommended that patient be started on [place]-Synephrine. He was admitted to [facility] after discussing with the on-call personalized living manager nurse. Patient was managed in the ICU, blood pressure has improved. He was switched to dopamine. He however did not require that as pressures remain improved. He had 2D echo done that showed EF 55%. No obvious pericardial effusion. He had a CT of the chest done that showed bilateral pleural effusions as well as a small anterior mediastinal collection. Patient was also started on dexamethasone and IV Zosyn. Given clinic [facility] transfer line were consulted again and patient was accepted for transfer to [facility] with cardiothoracic surgery consult. Blood pressure at that time of being transplanted was normal. He had been off pressors for more than 8 hours. Patient Problems: Active and Suspected Problems (Last Reviewed 04/28/20 @ 06:[address] Boubacar Sellers MD) COVID-19 (Acute) Hx of CABG (Acute) BRIAN (acute kidney injury) (Acute) Shock (Acute) Hypotension (Acute) Subjective: On the day of discharge, patient was seen and examined. He was on 2L oxygen. Denies fever or chills. Objective: Physical exam: General: Alert, Oriented x3, Cooperative, on 2L oxygen HEENT: Atraumatic, PERRLA, EOMI, Normocephalic Neck: Supple, No JVD, Negative Carotid Bruits Lungs: Diminished, no wheezes, - - Well approximated healing midline incision from chest to abdomen. Cardiovascular: Regular rate, Normal S1, Normal S2, No murmurs Abdomen: Bowel Sounds Present, Soft, Non Tender, - - 3 horizontal incisions on upper abdomen;well approximated, slight slough at abdominal incisional sites. Extremities: No edema Skin: Excoriated - Right elliott Musculoskeletal: No Tenderness to Palpation of Joints or Extremities Neurological: Cranial nerves II-XII grossly intact Psych/Mental Status: Normal Affect, Appropriate - Physical Exam Vitals/I&O's: Vital Signs Temp Pulse Resp BP Pulse Ox 97.3 F L 80 20 H 109/63 94 04/29/20 08:00 04/29/20 11:00 04/29/20 11:00 04/29/20 11:00 04/29/20 11:00 Oxygen Flow Rate (L/min) 2 Oxygen Delivery Method Nasal Cannula Weight: 104.7 kg Body Mass Index (BMI) 34.7 Intake and Output for Last 24 Hours 04/27/20 04/28/20 04/29/20 23:59 23:59 23:59 Intake Total 3055.25 / 3055.25 1907.08 / 2207.08 990 / 990 Output Total 1080 / 1080 550 / 550 Balance 3055.25 / 3055.25 827.08 / 1127.08 440 / 440 Microbiology Past 72 Hours 04/28/20 16:10 Exudate Gram Stain - Final 04/28/20 16:10 Exudate Wound Culture - Preliminary Gram positive organism 04/27/20 04:45 Urine, Clean Catch Urine Culture - Preliminary Culture exhibits no growth. 04/28/20 04:45 Urine, Clean Catch Legionella Antigen - Final 04/28/20 04:45 Urine, Clean Catch Streptococcus pneumoniae Antigen (M - Final 04/27/20 19:15 Mucosa - Nose SARS-CoV-2 Antigen (Rapid) - Final SARS-CoV-2 (COVID 19) Laboratory Results 04/27/20 18:55: Urine Color Yellow, Urine Clarity Sl. Cloudy, Urine pH 5.0, Ur Specific [place] 1.020, Urine Protein 15 H, Urine Glucose (UA) 1000 H, Urine Ketones Negative, Urine Occult Blood Negative, Urine Nitrite Negative, Urine Bilirubin Negative, Urine Urobilinogen Normal, Ur Leukocyte Esterase Negative, Urine RBC 0 SEEN, Urine WBC 0 SEEN, Ur Squamous Epith Cells 0 SEEN, Urine Bacteria 0 SEEN, Urine Mucus 0 SEEN 04/28/20 01:00: Procalcitonin 0.20 H 04/28/20 14:20: Troponin I 0.369 H 04/28/20 17:16: POC Glucose 261 H 04/28/20 18:55: Ur Random Sodium 87, Urine Creatinine 64.50 04/28/20 20:46: POC Glucose 303 H 04/29/20 04:24: WBC 3.7 L, RBC 3.08 L, Hgb 8.8 L, Hct 29.6 L, MCV 96.1 H, MCH 28.6, MCHC 29.7 L, RDW Std Deviation 48.8 H, RDW Coeff of Per 14.0, Plt Count 185, MPV 10.7, Immature Gran % (Auto) 1.300 H, Neut % (Auto) 86.4 H, Lymph % (Auto) 7.5 L, Dane % (Auto) 4.8, Eos % (Auto) 0.0, Baso % (Auto) 0.0, Absolute Neuts (auto) 3.2, Absolute Lymphs (auto) 0.28 L, Nucleated RBC % 0.8, Differential Comment SCANNED, Diff Path Review September04/29/20 04:24: Sodium 140, Potassium 4.3, Chloride 109 H, Carbon Dioxide 23.0, Anion Gap 8, BUN 44 H, Creatinine 1.68 H, Estim Creat Clear Calc 32.23, Est GFR (MDRD) Af Amer 50 L, Est GFR (MDRD) Non-Af 42 L, BUN/Creatinine Ratio 26.2 H, Glucose 248 H, Calcium 7.4 L, Total Bilirubin 0.40, AST 187 H, ALT 60, Alkaline Phosphatase 91, Total Protein 5.8 L, Albumin 2.5 L, Globulin 3.3, Albumin/Globulin Ratio 0.8 L 04/29/20 06:42: POC Glucose 278 H Current Medications Acetaminophen (Acetaminophen 325 Mg Tablet) 650 mg PO Q6H PRN PRN PRN Reason: Pain Score 1-10/Temp > 100.7 F Albuterol Sulfate (Albuterol 2.5 Mg/3 Ml Vial.Neb.) 2.5 mg INHALATION Q2H PRN PRN PRN Reason: SOB &/OR WHEEZING Aspirin (Aspirin 81 Mg Tab.Chew) 81 mg PO DAILY [facility] Last Admin: 04/29/20 09:02 Dose: 81 mg Documented by: Atorvastatin Calcium (Atorvastatin Calcium 20 Mg Tablet) 20 mg PO MoWeFr@2200 [facility] Last Admin: 04/28/20 20:50 Dose: 20 mg Documented by: Balsalazide (Balsalazide Disodium 750 Mg Capsule) 4,500 mg PO DAILY [facility] Last Admin: 04/29/20 09:04 Dose: Not Given Documented by: Cholecalciferol (Cholecalciferol (Vit D3) 1,000 Unit (25mcg)) 2,000 unit PO DAILY [facility] Last Admin: 04/29/20 09:02 Dose: 2,000 unit Documented by: Dexamethasone (Dexamethasone 2 Mg Tablet) 6 mg PO DAILY [facility] Stop: 05/06/20 10:01 Last Admin: 04/29/20 09:02 Dose: 6 mg Documented by: Dextrose (Dextrose 50%-Water 25 Gm/50 Ml Disp.Syrin) 0 gm IV X1 PRN; Protocol PRN Reason: Hypoglycemia Enoxaparin Sodium (Enoxaparin 30 Mg/0.3 Ml Syringe) 30 mg SC DAILY [facility] Last Admin: 04/29/20 09:02 Dose: 30 mg Documented by: Glucagon (Glucagon 1 Mg/Ml Syringe) 1 mg IM .X1 PRN PRN Reason: Hypoglycemia Piperacillin Sod/Tazobactam (Sod 3.375 gm/ Sodium Chloride) 50 mls @ 12.5 mls/hr IV Q12 [facility] Last Admin: 04/29/20 09:51 Dose: 12.5 mls/hr Documented by: Sodium Chloride () 250 mls @ 15 mls/hr IV .[id number] PRN PRN Reason: Saline Flush Last Infusion: 04/28/20 16:45 Dose: 15 mls/hr Documented by: Sodium Chloride () 250 mls @ 15 mls/hr IV .[id number] PRN PRN Reason: Additional IVPB Infusion Dopamine HCl/Dextrose () 800 mg in 250 mls @ 9.713 mls/hr CONT INF .[id number] [facility]; Protocol Last Admin: 04/28/20 21:23 Dose: Not Given Documented by: Insulin Glargine (Insulin Glargine 100 Units/Ml Pen) 15 units SC BID [facility] Last Admin: 04/29/20 06:44 Dose: 15 units Documented by: Insulin Human Lispro (Insulin Lispro 100 Unit/Ml Insuln.Pen) 0 unit SC ACHS [facility]; Protocol Last Admin: 04/29/20 12:07 Dose: 4 u Documented by: Melatonin (Melatonin 3 Mg Tablet) 3 mg PO QHS PRN PRN PRN Reason: INSOMNIA Ondansetron HCl (Ondansetron 4 Mg/2 Ml Vial) 4 mg IV Q8H PRN PRN PRN Reason: NAUSEA/VOMITING Sodium Chloride (0.9% Saline Lock 10 Ml Syringe) 10 - 40 ml IV UD PRN PRN Reason: SALINE FLUSH Last Admin: 04/28/20 04:50 Dose: 10 ml Documented by: Throat Lozenges (Benzocaine/Menthol 1 Lozenge) 1 lozenge MUCOUS MEM Q2H PRN PRN PRN Reason: COUGH Last Admin: 04/29/20 01:36 Dose: 1 lozenge Documented by: Timolol Maleate (Timolol 0.5% 5ml Opth.Btl) 1 drop EACH EYE DAILY [facility] Last Admin: 04/29/20 09:03 Dose: 1 drop Documented by: Discharge Diet: Low fat/ Low Cholesterol, 2000 mg Sodium Diet Discharge Activity: Return to Normal Activity Home Medications: Medications to take at Discharge Aspirin [Aspirin, Baby] 81 mg PO DAILY@0800 06/23/15 Cholecalciferol (VIT D3) [Vitamin D] 2,000 unit PO DAILY 06/23/15 Timolol 0.5% [Timoptic] 1 drp EACH EYE DAILY 06/23/15 balsalazide 750 mg capsule 6 cap PO QDAY cap 05/25/18 liraglutide 0.6 mg/0.1 mL (18 mg/3 mL) subcutaneous pen injector 1.2 mg SC DAILY ml 05/17/19 atenolol 50 mg tablet 50 mg PO DAILY #90 tab 10/27/19 enalapril maleate 10 mg tablet 10 mg PO DAILY #90 tab 10/27/19 nitroglycerin 0.4 mg sublingual tablet 0.4 mg SUBLINGUAL Q5-15M PRN #25 tab 03/28/20 dapagliflozin 10 mg tablet 10 mg PO DAILY 04/06/20 Atorvastatin Calcium [Lipitor] 20 mg PO MOWEFR 04/27/20 Glyburide/Metformin HCl [Glyburide-Metformin 5-500 mg] 4 ea PO DAILY 04/27/20 Primary Care Physician: Lucho Tucker MD [Primary Care Provider] - Please follow up with your Primary Care Physician in: within 1-2 weeks of discharge Disposition: Acute care Hospital Minutes spent on discharge:: 50 Patient Condition:: Stable Medical Necessity - Tobacco Use Smoking Status: Former smoker Tobacco Use: Non-smoker Meaningful Use Info Meaningful Use Diagnoses (Choose all that apply): None applicable Inpatient E&M: 64129 Disch Hosp
[2020-04-29 12:31] LABS: Bedside Glucose 309 mg/dL (70-110)
--- NOTE | 2020-04-29 14:13 | NURSING ---
1135 transport set up with [facility] ETA of 1330 [facility] called at 1400 stated they would have new ETA of 60-75minutes
--- NOTE | 2020-04-29 15:39 | NURSING ---
[facility] arrived at 1535 this RN called [facility] [phone] to notify patient would be leaving this facility
[2020-05-01 13:01] LABS: Pathologist Review Reviewed
== END 2020-04-29 16:15 | disposition short-term general hospital (02) | DRG 291 ==
LOC: ED 23:27 → ICU 23:58
PROVIDERS: Admitting Provider Hospitalist; Emergency Provider Emergency Medicine; Visit Provider Internal Medicine
DX: R57.0 Cardiogenic shock (principal); U07.1 COVID-19; E87.2 Acidosis; I24.8 Other forms of acute ischemic heart disease; N17.9 Acute kidney failure, unspecified; R09.02 Hypoxemia; E86.0 Dehydration; R06.89 Other abnormalities of breathing; Z95.1 Presence of aortocoronary bypass graft; I25.10 Atherosclerotic heart disease of native coronary artery without angina pectoris; I10 Essential (primary) hypertension; E11.9 Type 2 diabetes mellitus without complications; Z87.891 Personal history of nicotine dependence; E66.9 Obesity, unspecified; Z95.0 Presence of cardiac pacemaker; Z79.899 Other long term (current) drug therapy; Z79.84 Long term (current) use of oral hypoglycemic drugs; Z68.31 Body mass index [BMI] 31.0-31.9, adult; S80.811A Abrasion, right lower leg, initial encounter; X58.XXXA Exposure to other specified factors, initial encounter; Y93.9 Activity, unspecified; Y92.89 Other specified places as the place of occurrence of the external cause; Y99.8 Other external cause status; I95.81 Postprocedural hypotension
CPT/HCPCS: 36556; 71045; 71250; 80053; 81001; 82570; 82962; 83605; 84145; 84300; 84484; 85025; 85610; 85730; 87040; 87070; 87077; 87086; 87186; 87205; 87426; 87449; 87641; 93005; 93306; 94640; 99251; 99285; J7030; J7050; Q9957; A4216; C8929; G0463